=== PATIENT | male | born 1985 | race Caucasian/White ===

== ENCOUNTER 2020-08-14 13:23 | Emergency (ER) | payer BC, SELFPAY ==
[2020-08-14] VITALS (33 sets, daily range): BP systolic 66–130; BP diastolic 50–77; PULSE 43–99; RESP 11–33; TEMP 36.4; O2SAT 77–100
--- NOTE | ~2020-08-14 | XR_ITS ---
EXAMINATION: XR chest 1V portable DATE: 08/14/2020 14:05 INDICATION: Seizure TECHNIQUE: frontal view of the chest was obtained. COMPARISON: Chest radiograph dated 01/08/2019 FINDINGS: The lungs are clear with no focal airspace opacities, pulmonary edema, pleural effusion or pneumothor ax. The cardiomediastinal silhouette is normal. Visualized bones and soft tissues are unremarkable. IMPRESSION: 1. Normal chest radiograph. Reviewed, dictated and finalized at location B. IMPRESSION: 1. Normal chest radiograph.
--- NOTE | ~2020-08-14 | CT_ITS ---
EXAMINATION: CT brain wo con INDICATION: Headache COMPARISON: None TECHNIQUE: Standard unenhanced head CT. The dose-length product (DLP) was 605.33 mGy-cm. The mA was a djusted according to patient size. Iterative reconstruction technique was employed. FINDINGS: There is no intracranial hemorrhage, acute infarction, or abnormal mass lesion. The ventric les are normal. There is no abnormal mass effect or midline shift. The damon-white matter differentiat ion is normal. The basal cisterns are patent. 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 The paranasal sinus es, mastoids and calvarium are normal. IMPRESSION: 1. No acute intracranial abnormality. Reviewed, dictated and finalized at location A.
--- NOTE | 2020-08-14 14:27 | ED.SEIZURE ---
HPI - Seizure General Chief Complaint: Seizure Stated Complaint: SEIZURE Time Seen by Provider: 08/14/20 13:23 History of Present Illness HPI Narrative: Patient is a 35-year-old male who presents ER after potentially having a seizure. Apparently patient walked into the home of one of his friends where there was only 11-year-old girl. Present. He walked and acting confused and sat on the couch and started having shaking activity. Just scared the young woman and she called 911. Patient has been confused since the seizure-like activity for EMS. He has had no additional seizure activity. Patient endorses history of seizures was unsure what medication he takes. He has no other reports of injury and has no visual evidence of trauma. Related Data Home Medications Medication Instructions Recorded Confirmed lamotrigine 300 PO DAILY 08/14/20 Allergies Allergy/AdvReac Type Severity Reaction Status Date / Time No Known Allergies Allergy Verified 08/14/20 16:53 Review of Systems Review of Systems: ROS unobtainable: Yes unobtainable due to mental status PMFSH Past Medical History Medical History (Updated 08/14/20 @ 20:06 by Humberto Guzman MD) Bradycardia Seizures Surgical History Surgical History (Updated 08/14/20 @ 14:32 by Humberto Guzman MD) No history of previous surgery Social History Social History (Updated 08/14/20 @ 14:32 by Humberto Guzman MD) Tobacco type: e-cigarettes/vaping Substance use type: marijuana Gender identity (if verbalized by the patient): Male Sexual Orientation (if Verbalized by the Patient): Straight or Heterosexual Exam Narrative: Exam Narrative: GENERAL: Well-appearing, well-nourished, and in no acute distress. HEAD: Normocephalic, atraumatic. EYES: PERRLA and EOMI. ENT: Mucous membranes moist. CHEST: Clear to auscultation. No respiratory distress. HEART: Regular rate and rhythm. Normal peripheral pulses. ABDOMEN: Soft, nontender, nondistended. EXTREMITIES: Normal range of motion. No edema. SKIN: Warm, dry, no rash. NEURO: Alert and oriented x2. Course Reevaluation(s) Reevaluation #1: Patient now more confused after an episode of emesis. Has not returned to neurologic baseline and is not answering questions now. Will order additional labs/urine and scan the head. No observed seizure activity in the ER. Date: 08/14/20 Time: 15:54 Reevaluation #2: Patient's brother who is called off and let us know the patient did not take his medications today. He has been orally loaded with lamotrigine 300 mg which is his home meds. He has been seizure-free for several hours and is awake alert and oriented x4. He has been given Tylenol for headache. Discharge home. Date: 08/14/20 Time: 20:05 Vital Signs Vital signs: Vital Signs Temperature 97.5 F L 08/14/20 13:42 Pulse Rate 56 L 08/14/20 13:42 Respiratory Rate 18 08/14/20 13:42 Blood Pressure 103/69 08/14/20 13:42 Pulse Oximetry 98 08/14/20 13:42 Temperature 97.5 F L 08/14/20 13:42 Pulse Rate 58 L 08/14/20 16:56 Respiratory Rate 18 08/14/20 13:42 Blood Pressure 103/69 08/14/20 13:42 Pulse Oximetry 98 08/14/20 13:42 MDM - Seizure Lab Data Result diagrams: 08/14/20 14:52 08/14/20 14:52 Labs: Lab Results 08/14/20 08/14/20 08/14/20 Range/Units 14:52 14:52 16:06 WBC 9.6 (4.5-10.0) K/mm3 RBC 5.29 (4.6-6.20) M/mm3 Hgb 15.9 (14.0-18.0) g/dL Hct 47.8 (42.0-52.0) % MCV 90.4 (80-100) fl MCH 30.1 (26-34) pg MCHC 33.3 (32-36) g/dl RDW 12.5 (11.5-14.5) % Plt Count 228 (150-375) k/mm3 MPV 10.5 H (7.4-10.4) fl Immature Gran % (Auto) 0.3 (0-0.5) % Neut % (Auto) 84.1 H (45.5-73.1) % Lymph % (Auto) 11.3 L (18.3-44.2) % [place] % (Auto) 3.7 (2.6-8.5) % Eos % (Auto) 0.2 (0-4.4) % Baso % (Auto) 0.4 (0.2-1.2) % Lymph # (Auto) 1.09 (0.9-3.2) K/mm3 [place] # (Auto) 0.4 (0
--- NOTE | 2020-08-14 14:35 | PC.NURSE ---
RN left a vm for mother at this time to notify that pt is here per pt request my phones
[2020-08-14 14:59] LABS: Basophils Percent Auto 0.4 % (0.2-1.2); Eosinophils Percent Auto 0.2 % (0-4.4); Hematocrit 47.8 % (42.0-52.0); Hemoglobin 15.9 g/dL (14.0-18.0); Immature Granulocyte Absolute 0.03 K/mm3 (0.00-0.031); Immature Granulocyte Percent A 0.3 % (0-0.5); Lymphocytes Absolute Auto 1.09 K/mm3 (0.9-3.2); Lymphocytes Percent Auto 11.3 % (18.3-44.2); Mean Corpuscular HGB Conc 33.3 g/dl (32-36); Mean Corpuscular Hemoglobin 30.1 pg (26-34); Mean Corpuscular Volume 90.4 fl (80-100); Mean Platelet Volume 10.5 fl (7.4-10.4); Monocytes Absolute Auto 0.4 K/mm3 (0.1-0.6); Monocytes Percent Auto 3.7 % (2.6-8.5); Neutrophils Absolute Auto 8.1 K/mm3 (1.3-6.7); Neutrophils Percent Auto 84.1 % (45.5-73.1); Platelet Count Result 228 k/mm3 (150-375); Red Blood Count 5.29 M/mm3 (4.6-6.20); Red Cell Distribution Width 12.5 % (11.5-14.5); White Blood Count 9.6 K/mm3 (4.5-10.0)
[2020-08-14 15:14] LABS: Sodium 137 mmol/L (137-145)
[2020-08-14 15:15] LABS: Anion Gap 10 mmol/L (8-16); Blood Urea Nitrogen 12 mg/dL (9-20); Calcium 8.7 mg/dL (8.4-10.2); Carbon Dioxide 25 mmol/L (22-30); Chloride 102 mmol/L (98-107); Estimated CRCL calculation 111 ml/min; Estimated Glomerular Filt Rate > 60; Glucose 149 mg/dL (75-110)
--- NOTE | 2020-08-14 15:55 | PC.NURSE ---
mother of pt called and said that she was unable to tell us meds or pt neurologist. she would contact the brother and see if he knew .they will return our call shortly.
[2020-08-14] MEDS: SODIUM CHLORIDE 0.9% IV 1,000 ML 999 ML IV CONT (16:10)
[2020-08-14 16:23] LABS: Ethanol < 10 mg/dL (<10)
--- NOTE | 2020-08-14 16:47 | PC.NURSE ---
Brother Leroy Young [phone] per brother report Pt did not have his meds today, pt take lamotrigine 300mg daily between 121230, dr sanabria [phone]. My brother went for a walk with his roommates dog, placed it back in the yard, had a micro seizure, walked a few blocks and tried opening a truck door, instead climbed into bed of truck. and had another seizure and 911 was called. His seizures usually last a few minute, he pales, sweaty, smells like ammonia, goose bumps to left side of body only.
[2020-08-14] MEDS: lamoTRIgine 100 MG TABLET 300 MG PO (17:10)
[2020-08-14] MEDS: ACETAMINOPHEN 325 MG TABLET 650 MG PO (17:54)
[2020-08-14 20:29] LABS: Add Urine Microscopic? YES; Appearance Urine Cloudy (Clear); Bacteria Urine Trace /hpf; Bilirubin Urine Negative (Negative); Blood Urine Negative (Negative); Cellular Casts Urine Present /lpf; Color Urine Yellow (Yellow); Glucose Urine UA 2+ mg/dL (Negative); Ketones Urine Trace mg/dL (Negative); Leukocyte Esterase Ur Negative LEU/UL (Negative); Mucus Urine Few /lpf; Nitrate Urine Negative (Negative); Protein Urine 2+ mg/dL (Negative); RBC Urine 0-2 /hpf (0-2); Specific Grav Ur 1.024 (1.001-1.035); Urobilinogen Urine Negative mg/dL (<2.0); WBC Urine 0-3 /hpf
[2020-08-14 20:41] LABS: Amphetamine Screen Urine Negative (Negative); Barbiturate Screen Urine Negative (Negative); Benzodiazepines Screen Urine Negative (Negative); Cannabinoid Screen Urine Positive (Negative); Cocaine Screen Urine Negative (Negative); Methadone Screen Urine Negative (Negative); Opiate Screen Urine Negative (Negative); Phencyclidine Screen Urine Negative (Negative)
== END 2020-08-14 21:06 | disposition home or self-care (01) ==
PROVIDERS: Emergency Provider Emergency Medicine
DX: G40.909 Epilepsy, unspecified, not intractable, without status epilepticus (principal); F17.290 Nicotine dependence, other tobacco product, uncomplicated
CPT/HCPCS: 36415; 70450; 71045; 80048; 80307; 81001; 85025; 96360; 96361; 99284; A9270; J7030

== ENCOUNTER 2020-09-01 13:21 | Emergency (ER) | payer BC, SELFPAY ==
[2020-09-01] VITALS (19 sets, daily range): BP systolic 117–146; BP diastolic 70–84; PULSE 59–81; RESP 9–22; TEMP 36.6; O2SAT 97–100
--- NOTE | 2020-09-01 13:36 | ECG_ITS ---
Measurements Intervals [place] Rate: 63 P: 53 [place]: 166 QRS: 9 QRSD: 117 T: 46 QT: 377 QTc: 386 Interpretive Statements SINUS RHYTHM INCOMPLETE RIGHT BUNDLE BRANCH BLOCK BORDERLINE ECG Electronically Signed On 09-01-2020 14:08:26 SECURITY SHIFT MANAGER by Surya Andrews D.O.
--- NOTE | 2020-09-01 13:43 | ED.SEIZURE ---
HPI - Seizure General Chief Complaint: Seizure Stated Complaint: SEIZURE Time Seen by Provider: 09/01/20 13:35 Source: patient History of Present Illness HPI Narrative: 35-year-old male presents to emergency department after having a seizure today. Patient states his last seizure was about 2 weeks ago. He is compliant with his seizure medications. He states he was in the park, and then remembers waking up in the hospital. He states he feels foggy. No lightheadedness or dizziness. No chest pain or shortness of breath. No abdominal pain. No nausea or vomiting. Seizure History: Yes Related Data Home Medications Medication Instructions Recorded Confirmed lamotrigine 300 PO DAILY 08/14/20 Allergies Allergy/AdvReac Type Severity Reaction Status Date / Time No Known Allergies Allergy Verified 08/14/20 16:53 Review of Systems Review of Systems: All systems reviewed & are unremarkable except as noted in HPI and below (ROS) Constitutional: Constitutional: Denies chills and Denies fever(s) Comments: Reports fogginess Eyes: Eyes: Reports no additional eye complaints ENT: Reports system reviewed and no additional complaints, except as documented Cardiovascular: Cardiovascular: Denies chest pain Respiratory: Respiratory: Denies cough and Denies dyspnea Gastrointestinal: Gastrointestinal: Denies abdominal pain, Denies diarrhea, Denies nausea and Denies vomiting Genitourinary: Genitourinary: Reports no additional male genitourinary complaints Musculoskeletal: Musculoskeletal: Reports no additional musculoskeletal complaints Integumentary/Breasts: Skin/Breast: Reports system reviewed and no additional complaints, except as docu Neurologic: Reports system reviewed and no additional complaints, except as documented Psychiatric: Psychiatric: Reports no additional psychiatric complaints Endocrine: Endocrine: Reports no additional endocrine complaints Hematologic/Lymphatic: Hematologic/Lymphatic: Reports no additional hematologic/lymphatic complaints Allergic/Immunologic: Allergic/Immunologic: Reports no additional allergic/immunologic complaints PMFSH Past Medical History Medical History Bradycardia Seizures Surgical History Surgical History No history of previous surgery Social History Social History Tobacco type: e-cigarettes/vaping Substance use type: marijuana Gender identity (if verbalized by the patient): Male Exam Const: General: no acute distress and alert Orientation/consciousness: patient oriented x3 HENMT: Other: Right tongue abrasion Eyes: Pupils: Equal, round and reactive pupils present Neck: Neck: normal visual inspection Chest: Chest palpation & inspection: normal inspection of the chest Resp: Effort & Inspection: normal respiratory effort Auscultation: clear to auscultation bilaterally Cardio: Rate: regular rate Rhythm: regular rhythm GI: Inspection: non-distended GI Palp: Yes Soft to palpation and Yes Tenderness to palpation present (GI) Skin: General skin exam: normal color Rashes: no rashes Neuro: General: patient oriented x3 and moves all extremities Extrem: General: normal to inspection Psych: Mental Status: mental status grossly normal Thought content: Yes Normal thought content present Course Reevaluation(s) Reevaluation #1: 1530 -reevaluated patient, no new complaints. Patient has not had a seizure since he has been in the emergency department. Counseled patient to follow-up with his neurologist as soon as possible for further evaluation, as he may need a change in his seizure medication. Return to emergency department if he continues to have seizures or other concerns. Vital Signs Vital signs: Vital Signs Pulse Rate 62 09/01/20 13:24 Respiratory Rate 12 09/01/20 13:24 Pulse
[2020-09-01 13:57] LABS: Basophils Percent Auto 0.5 % (0.2-1.2); Eosinophils Percent Auto 0.4 % (0-4.4); Hematocrit 47.8 % (42.0-52.0); Immature Granulocyte Absolute 0.04 K/mm3 (0.00-0.031); Immature Granulocyte Percent A 0.5 % (0-0.5); Lymphocytes Absolute Auto 1.22 K/mm3 (0.9-3.2); Lymphocytes Percent Auto 15.1 % (18.3-44.2); Mean Corpuscular HGB Conc 33.5 g/dl (32-36); Mean Corpuscular Hemoglobin 29.9 pg (26-34); Mean Corpuscular Volume 89.2 fl (80-100); Mean Platelet Volume 10.5 fl (7.4-10.4); Monocytes Absolute Auto 0.4 K/mm3 (0.1-0.6); Monocytes Percent Auto 5.2 % (2.6-8.5); Neutrophils Absolute Auto 6.4 K/mm3 (1.3-6.7); Neutrophils Percent Auto 78.3 % (45.5-73.1); Platelet Count Result 234 k/mm3 (150-375); Red Blood Count 5.36 M/mm3 (4.6-6.20); Red Cell Distribution Width 12.5 % (11.5-14.5); White Blood Count 8.1 K/mm3 (4.5-10.0)
[2020-09-01 14:07] LABS: Alanine Aminotransferase 24 U/L (4-50); Albumin Level 4.9 g/dL (3.5-5.1); Alkaline Phosphatase 72 U/L (38-126); Anion Gap 8 mmol/L (8-16); Aspartate Amino Transferase 33 U/L (17-59); Bilirubin,Total 0.4 mg/dL (0.2-1.3); Blood Urea Nitrogen 14 mg/dL (9-20); Calcium 9.2 mg/dL (8.4-10.2); Carbon Dioxide 29 mmol/L (22-30); Chloride 102 mmol/L (98-107); Estimated CRCL calculation 101 ml/min; Estimated Glomerular Filt Rate > 60; Glucose 108 mg/dL (75-110); Potassium 4.3 mmol/L (3.4-5.0); Sodium 139 mmol/L (137-145)
--- NOTE | 2020-09-01 15:15 | PC.NURSE ---
spoke with ZACH Minor about pt results all being back, ZACH states that he is still wanting to keep an eye on the pt and not let him go real quick. pt updates on plan of care.
[2020-09-04 13:29] LABS: Lamotrigine Lamictal 8.7 mcg/mL (4.0-18.0)
== END 2020-09-01 15:53 | disposition home or self-care (01) ==
PROVIDERS: Emergency Provider Emergency Medicine
DX: G40.909 Epilepsy, unspecified, not intractable, without status epilepticus (principal); I45.10 Unspecified right bundle-branch block
CPT/HCPCS: 36415; 80053; 80175; 85025; 93005; 99283

== ENCOUNTER 2021-01-31 15:10 | Emergency (ER) | payer BC, SELFPAY ==
[2021-01-31 15:13] VITALS: BP 143/87; PULSE 66; RESP 18; TEMP 36.9; O2SAT 96
[2021-01-31 15:22] VITALS: PULSE 70
--- NOTE | 2021-01-31 15:22 | ECG_ITS ---
Measurements Intervals [place] Rate: 61 P: 55 [place]: 183 QRS: 14 QRSD: 109 T: 48 QT: 375 QTc: 379 Interpretive Statements SINUS RHYTHM INCOMPLETE RIGHT BUNDLE BRANCH BLOCK BASELINE ARTIFACT- I, II, III, AVR, AVL, AVF BORDERLINE ECG Electronically Signed On 01-31-2021 17:19:35 CDT by Surya Andrews D.O.
[2021-01-31] MEDS: SODIUM CHLORIDE 0.9% IV 1,000 ML 999 ML IV CONT (15:26)
--- NOTE | 2021-01-31 15:33 | ED.GENADULT ---
HPI - General Adult General Chief complaint: Seizure Stated complaint: SZ Source: patient and old records reviewed Mode of arrival: ambulatory Limitations: no limitations History of Present Illness HPI narrative: Patient a 35-year-old male who presents for EMS status post seizure patient with history of seizure disorder is currently taking Lamictal 300 mg daily patient is followed by neurology Dr. Russell patient notes in the last month this will be his fifth seizure patient on arrival is no longer postictal resting comfortably in the room denying any pain alert and oriented x3 Related Data Home Medications Medication Instructions Recorded Confirmed lamotrigine 300 PO DAILY 08/14/20 Allergies Allergy/AdvReac Type Severity Reaction Status Date / Time No Known Allergies Allergy Verified 08/14/20 16:53 Review of Systems Review of Systems: All systems reviewed & are unremarkable except as noted in HPI and below PMFSH Past Medical History Medical History Bradycardia Seizures Surgical History Surgical History No history of previous surgery Social History Social History Tobacco type: e-cigarettes/vaping Substance use type: marijuana Gender identity (if verbalized by the patient): Male Exam Narrative: Exam Narrative: GENERAL: Well-appearing, well-nourished, and in no acute distress. HEAD: Normocephalic, atraumatic. EYES: PERRLA and EOMI. CHEST: Clear to auscultation. No respiratory distress. No wheezes rales or rhonchi HEART: Regular rate and rhythm. No murmur heard. Normal peripheral pulses. ABDOMEN: Soft, nontender, nondistended EXTREMITIES: Normal range of motion. No edema. SKIN: Warm, dry, no rash. NEURO: No focal deficits. Alert and oriented x3. Cranial nerves II through XII grossly intact. Normal speech PSYCH: Normal mood and affect. Course Course Emergency Course: Patient evaluated the emergency department has remained in normal mentation no high risk changes in the blood work will be discharged home with recommendations to increase his Lamictal and follow with his neurologist patient agrees with this plan also given reasons to return Consultations Consultation #1: Les case with Dr. Russell who will follow the patient in clinic would like the patient's Lamictal to be increased to 200 twice a day. I will follow the patient in clinic as noted Date: 01/31/21 Time: 17:50 Vital Signs Vital signs: Vital Signs Temperature 98.5 F 01/31/21 15:13 Pulse Rate 66 01/31/21 15:13 Respiratory Rate 18 01/31/21 15:13 Blood Pressure 143/87 H 01/31/21 15:13 Pulse Oximetry 96 01/31/21 15:13 Temperature 98.5 F 01/31/21 15:13 Pulse Rate 55 L 01/31/21 17:07 Respiratory Rate 21 H 01/31/21 17:07 Blood Pressure 121/69 01/31/21 17:07 Pulse Oximetry 99 01/31/21 17:07 Medical Decision Making MDM Narrative Medical decision making narrative: Patient with seizure will be discharged home with follow-up with his neurologist with medication change patient agrees with this was hydrated and given Ativan in the emergency department has remained hemodynamically stable Vital Signs Vital Signs: Vital Signs Temperature 98.5 F 01/31/21 15:13 Pulse Rate 66 01/31/21 15:13 Respiratory Rate 18 01/31/21 15:13 Blood Pressure 143/87 H 01/31/21 15:13 Pulse Oximetry 96 01/31/21 15:13 Temperature 98.5 F 01/31/21 15:13 Pulse Rate 55 L 01/31/21 17:07 Respiratory Rate 21 H 01/31/21 17:07 Blood Pressure 121/69 01/31/21 17:07 Pulse Oximetry 99 01/31/21 17:07 Lab Data Result diagrams: 01/31/21 15:41 01/31/21 15:41 Labs: Lab Results 01/31/21 01/31/21 01/31/21 Range/Units 15:41 15:41 15:41 WBC 13.6 H (4.5-10.0) K/mm3 RBC 5.13 (4.6-6.20) M/mm3 Hgb 15.5
[2021-01-31] MEDS: LORazepam INJ (*CRX) 2 MG/ML VIAL 1 MG IV PUSH (15:48)
[2021-01-31 15:50] LABS: Basophils Absolute Auto 0.1 K/mm3 (0.0-0.1); Basophils Percent Auto 0.4 % (0.2-1.2); Eosinophils Percent Auto 0.2 % (0-4.4); Hematocrit 46.3 % (42.0-52.0); Hemoglobin 15.5 g/dL (14.0-18.0); Immature Granulocyte Absolute 0.06 K/mm3 (0.00-0.031); Immature Granulocyte Percent A 0.4 % (0-0.5); Lymphocytes Absolute Auto 1.11 K/mm3 (0.9-3.2); Lymphocytes Percent Auto 8.2 % (18.3-44.2); Mean Corpuscular HGB Conc 33.5 g/dl (32-36); Mean Corpuscular Hemoglobin 30.2 pg (26-34); Mean Corpuscular Volume 90.3 fl (80-100); Mean Platelet Volume 10.1 fl (7.4-10.4); Monocytes Absolute Auto 0.5 K/mm3 (0.1-0.6); Monocytes Percent Auto 3.6 % (2.6-8.5); Neutrophils Absolute Auto 11.9 K/mm3 (1.3-6.7); Neutrophils Percent Auto 87.2 % (45.5-73.1); Platelet Count Result 236 k/mm3 (150-375); Red Blood Count 5.13 M/mm3 (4.6-6.20); Red Cell Distribution Width 12.6 % (11.5-14.5); White Blood Count 13.6 K/mm3 (4.5-10.0)
[2021-01-31 16:02] LABS: Alanine Aminotransferase 25 U/L (4-50); Albumin Level 4.7 g/dL (3.5-5.1); Alkaline Phosphatase 76 U/L (38-126); Anion Gap 8 mmol/L (8-16); Aspartate Amino Transferase 33 U/L (17-59); Bilirubin,Total 0.3 mg/dL (0.2-1.3); Blood Urea Nitrogen 16 mg/dL (9-20); Calcium 8.7 mg/dL (8.4-10.2); Carbon Dioxide 26 mmol/L (22-30); Chloride 103 mmol/L (98-107); Estimated CRCL calculation 101 ml/min; Estimated Glomerular Filt Rate > 60; Glucose 126 mg/dL (75-110); Potassium 4.5 mmol/L (3.4-5.0); Sodium 137 mmol/L (137-145)
[2021-01-31 16:13] VITALS: BP 145/83; PULSE 63; RESP 20; O2SAT 100
--- NOTE | 2021-01-31 16:14 | PC.NURSE ---
patient unable to urinate at this time, declines straight cath but will attempt again later.
[2021-01-31 17:07] VITALS: BP 121/69; PULSE 55; RESP 21; O2SAT 99
[2021-01-31 17:10] LABS: Add Urine Microscopic? YES; Appearance Urine Clear (Clear); Bilirubin Urine Negative (Negative); Blood Urine Negative (Negative); Color Urine Yellow (Yellow); Glucose Urine UA 1+ mg/dL (Negative); Ketones Urine Negative (Negative); Leukocyte Esterase Ur Negative LEU/UL (Negative); Mucus Urine Rare /lpf; Nitrate Urine Negative (Negative); Protein Urine 1+ mg/dL (Negative); RBC Urine 0-2 /hpf (0-2); Specific Grav Ur 1.024 (1.001-1.035); Squamous Epithelial Cell Urine Rare /hpf (Few); Urobilinogen Urine Negative mg/dL (<2.0); WBC Urine 0-3 /hpf
[2021-01-31 17:57] LABS: Barbiturate Screen Urine Negative (Negative); Benzodiazepines Screen Urine Negative (Negative)
[2021-01-31 18:03] VITALS: BP 135/61; PULSE 67; RESP 25; O2SAT 100
[2021-01-31 18:05] LABS: Cannabinoid Screen Urine Positive (Negative); Cocaine Screen Urine Negative (Negative); Methadone Screen Urine Negative (Negative); Opiate Screen Urine Negative (Negative); Phencyclidine Screen Urine Negative (Negative)
[2021-01-31 18:17] LABS: Amphetamine Screen Urine Negative (Negative)
[2021-02-04 17:20] LABS: Lamotrigine Lamictal 7.6 mcg/mL (4.0-18.0)
== END 2021-01-31 18:05 | disposition home or self-care (01) ==
PROVIDERS: Emergency Medicine Emergency Medical Services; Emergency Provider Family Medicine; PCP Family Medicine
DX: G40.909 Epilepsy, unspecified, not intractable, without status epilepticus (principal); F17.290 Nicotine dependence, other tobacco product, uncomplicated; I45.10 Unspecified right bundle-branch block
CPT/HCPCS: 36415; 80053; 80175; 80307; 81001; 85025; 93005; 96361; 96374; 99284; J2060; J7030

== ENCOUNTER 2022-04-05 15:23 | Emergency (ER) | payer BC, SELFPAY ==
[2022-04-05] VITALS (8 sets, daily range): BP systolic 118–132; BP diastolic 68–81; PULSE 63–68; RESP 13–20; TEMP 36.3–36.4; O2SAT 95–100
--- NOTE | ~2022-04-05 | XR_ITS ---
EXAMINATION: XR chest 2V Exam Date/Time: 04/05/2022 16:29 CDT HISTORY: SEIZURE Comparison: 08/14/2020. RESULT: Lines, tubes, and devices: None. Lungs and pleura: Clear. Cardiomediastinal silhouette: Stable cardiomediastinal silhouette. Other: No acute osseous or upper abdominal finding. IMPRESSION: No acute cardiopulmonary process. Reviewed, dictated and finalized at location K.
--- NOTE | ~2022-04-05 | CT_ITS ---
EXAMINATION: CT brain wo con DATE: 04/05/2022 17:34 INDICATION: seizure . TECHNIQUE: Computed tomography (CT) of the head was performed without intravenous contrast. The mA wa s adjusted according to patient size. Iterative reconstruction technique was employed. The dose-lengt h product was 605.33 mGy-cm. COMPARISON: 08/14/2020. FINDINGS: No acute intracranial hemorrhage or extra-axial fluid collection. No hydrocephalus, mass, or herniation. No acute ischemic infarct. Unremarkable dural venous sinus attenuation. No acute osseous abnormality. The aerated spaces are clear. Old left basal ganglia lacunar infarct. Optic nerve drusen. IMPRESSION: No acute intracranial process. Reviewed, dictated and finalized at location K.
--- NOTE | 2022-04-05 16:20 | ECG_ITS ---
Measurements Intervals [place] Rate: 52 P: 50 [place]: 189 QRS: 20 QRSD: 121 T: 46 QT: 399 QTc: 374 Interpretive Statements SINUS BRADYCARDIA INCOMPLETE RIGHT BUNDLE BRANCH BLOCK ABNORMAL RHYTHM ECG COMPARED TO ECG 01/31/2021 15:18:17 NO SIGNIFICANT CHANGES Electronically Signed On 04-06-2022 7:24:03 CDT by Kirk Cortes M.D.
[2022-04-05 16:35] LABS: Basophils Absolute Auto 0.1 K/mm3 (0.0-0.1); Basophils Percent Auto 0.5 % (0.2-1.2); Eosinophils Percent Auto 0.3 % (0-4.4); Hematocrit 45.4 % (42.0-52.0); Hemoglobin 15.9 g/dL (14.0-18.0); Immature Granulocyte Absolute 0.04 K/mm3 (0.00-0.031); Immature Granulocyte Percent A 0.4 % (0-0.5); Lymphocytes Absolute Auto 1.63 K/mm3 (0.9-3.2); Lymphocytes Percent Auto 17.6 % (18.3-44.2); Mean Corpuscular Hemoglobin 30.3 pg (26-34); Mean Corpuscular Volume 86.6 fl (80-100); Mean Platelet Volume 10.1 fl (7.4-10.4); Monocytes Absolute Auto 0.5 K/mm3 (0.1-0.6); Monocytes Percent Auto 5.5 % (2.6-8.5); Neutrophils Percent Auto 75.7 % (45.5-73.1); Platelet Count Result 269 k/mm3 (150-375); Red Blood Count 5.24 M/mm3 (4.6-6.20); Red Cell Distribution Width 12.4 % (11.5-14.5); White Blood Count 9.3 K/mm3 (4.5-10.0)
--- NOTE | 2022-04-05 16:43 | ED.SEIZURE ---
HPI - Seizure General Chief Complaint: Seizure Stated Complaint: SEIZURES Time Seen by Provider: 04/05/22 16:33 History of Present Illness HPI Narrative: 36-year-old male presents the emergency room for evaluation of multiple seizures prior to arrival. Patient has a seizure history and is currently on Vimpat and Lamictal. According to family, patient experienced multiple partial seizures. Patient is currently alert and oriented x4, but states that he is not had any dosing changes to his seizure medications. Patient states that he was in contact with his neurologist prior to arrival and was told to come to the emergency room for evaluation. Seizure History: Yes Related Data Allergies Allergy/AdvReac Type Severity Reaction Status Date / Time No Known Allergies Allergy Verified 08/14/20 16:53 Review of Systems Review of Systems: CONSTITUTIONAL: Denies fever, chills, or sweats. EYES: Denies visual changes, redness, or discharge. ENT: Denies rhinorrhea, congestion, sore throat, or otalgia. CARDIOVASCULAR: Denies chest pain, palpitations, or edema. RESPIRATORY: Denies cough or dyspnea. GASTROINTESTINAL: Denies abdominal pain, nausea, vomiting, or diarrhea. GENITOURINARY: Denies dysuria or hematuria. SKIN: Denies rash or itching. MUSCULOSKELETAL: Denies back pain, joint pain, or myalgia. NEUROLOGIC: Denies headache, numbness, dizziness, or weakness. PSYCHIATRIC: Denies anxiety or depression. [facility] Past Medical History Medical History Bradycardia Seizures Surgical History Surgical History No history of previous surgery Social History Social History Tobacco type: e-cigarettes/vaping Substance use type: marijuana Gender identity (if verbalized by the patient): Male Sexual Orientation (if Verbalized by the Patient): Straight or Heterosexual Exam Narrative: GENERAL: Well-appearing, well-nourished, and in no acute distress. HEAD: Normocephalic, atraumatic. EYES: PERRLA and EOMI. CHEST: Clear to auscultation. No respiratory distress. No wheezes rales or rhonchi HEART: Regular rate and rhythm. No murmur heard. Normal peripheral pulses. ABDOMEN: Soft, nontender, nondistended, normal active bowel sounds. EXTREMITIES: Normal range of motion. No edema. SKIN: Warm, dry, no rash. NEURO: No focal deficits. Alert and oriented x3. PSYCH: Normal mood and affect. Course Course Emergency Course: 1839: Discussed case with Dr. Head, neurologist with [facility]. He recommends having the patient take Klonopin twice a day for the next 3 days and follow-up with neurology next week. Vital Signs Vital signs: Vital Signs Temperature 36.4 C 04/05/22 15:26 Pulse Rate 67 04/05/22 15:26 Respiratory Rate 20 04/05/22 15:26 Blood Pressure 131/78 04/05/22 15:26 Pulse Oximetry 100 04/05/22 15:26 Oxygen Delivery Room Air 04/05/22 15:26 Temperature 36.4 C 04/05/22 15:26 Pulse Rate 64 04/05/22 15:45 Respiratory Rate 13 04/05/22 15:45 Blood Pressure 131/78 04/05/22 15:26 Pulse Oximetry 95 04/05/22 15:45 Oxygen Delivery Room Air 04/05/22 15:26 MDM - Seizure MDM Narrative Medical decision making narrative: 36-year-old male presents to the emergency room for evaluations of multiple seizures prior to arrival. Secondary etiologies were considered, but are less likely which include drug or toxin etiologies, metabolic disturbances, DIRECTOR [employer]CH[employer]ECTURE infections, ICH/CVA. Presentation is not consistent with an impact seizure related to any kind of head trauma. CT scan showed no acute intracranial abnormalities. CT MP and CBC were unremarkable. Patient had multiple seizures while here in the emergency room, and was given lorazepam. Case was discussed with his neurologist, Dr. Head, he recommends for 3-day course of Klonopin and follow-up in the next 6
[2022-04-05] MEDS: LORazepam INJ (*CRX) 2 MG/ML VIAL 1 MG IV PUSH (16:50)
--- NOTE | 2022-04-05 17:00 | PC.NURSE ---
received VO for 1mg IV ativan for patient actively having a seizure
[2022-04-05 17:20] LABS: Alanine Aminotransferase 17 U/L (6-50); Alkaline Phosphatase 77 U/L (38-126); Anion Gap 8 mmol/L (8-16); Aspartate Amino Transferase 26 U/L (17-59); Bilirubin,Total 0.6 mg/dL (0.2-1.3); Blood Urea Nitrogen 12 mg/dL (9-20); Calcium 8.8 mg/dL (8.4-10.2); Carbon Dioxide 27 mmol/L (22-30); Chloride 100 mmol/L (98-107); Estimated CRCL calculation 97 ml/min; Estimated Glomerular Filt Rate > 60; Glucose 125 mg/dL (65-110); Potassium 4.1 mmol/L (3.4-5.0); Sodium 135 mmol/L (137-145)
[2022-04-05 19:01] LABS: Appearance Urine Clear (Clear); Bilirubin Urine Negative (Negative); Blood Urine Negative (Negative); Color Urine Yellow (Yellow); Glucose Urine UA Negative (Negative); Ketones Urine Negative (Negative); Leukocyte Esterase Ur Negative LEU/UL (Negative); Nitrate Urine Negative (Negative); Protein Urine Trace mg/dL (Negative); Specific Grav Ur >= 1.030 (1.001-1.035); Urobilinogen Urine 0.2 mg/dL (<2.0)
[2022-04-05 19:24] LABS: Bacteria Urine Trace /hpf; Mucus Urine Moderate /lpf; RBC Urine 0-2 /hpf (0-2); Squamous Epithelial Cell Urine Rare /hpf (Few); WBC Urine 0-3 /hpf
[2022-04-05 19:25] LABS: Add Urine Microscopic? YES
== END 2022-04-05 20:20 | disposition home or self-care (01) ==
PROVIDERS: Emergency Medicine; Emergency Provider Nurse Practitioner Family; PCP Family Medicine
DX: G40.909 Epilepsy, unspecified, not intractable, without status epilepticus (principal); F17.210 Nicotine dependence, cigarettes, uncomplicated; R00.1 Bradycardia, unspecified; I45.10 Unspecified right bundle-branch block
CPT/HCPCS: 36415; 70450; 71046; 80053; 81001; 85025; 93005; 96374; 99284; J2060

== ENCOUNTER 2022-07-28 20:11 | Emergency (ER) | payer BC, SELFPAY ==
--- NOTE | ~2022-07-28 | XR_ITS ---
EXAMINATION: XR chest 1V portable DATE: 07/28/2022 20:40 INDICATION: Seizure TECHNIQUE: frontal view of the chest was obtained. COMPARISON: Chest radiograph dated 04/05/2022 FINDINGS: The lungs remain clear with no focal airspace opacities, pulmonary edema, pleural effusion or pneumot horax. The cardiomediastinal silhouette is normal. Visualized bones and soft tissues are unremarkable . IMPRESSION: 1. Normal chest radiograph. Reviewed, dictated and finalized at location A. IMPRESSION: 1. Normal chest radiograph.
--- NOTE | ~2022-07-28 | CT_ITS ---
EXAMINATION: CT brain wo con DATE: 07/28/2022 20:49 INDICATION: Seizures TECHNIQUE: Computed tomography (CT) of the head was performed without intravenous contrast. Sagittal and coronal reconstructions were performed. The mA was adjusted according to patient size. Iterative reconstruction technique was employed. The dose-length product was 605.33 mGy-cm. COMPARISON: head CT dated 04/05/2022 FINDINGS: No acute intracranial hemorrhage, acute infarction or abnormal extra axial fluid collection. Ventricl es are normal and symmetric. No mass/mass effect. Small calcified drusen at the bilateral optic discs . The paranasal sinuses and mastoid air cells are normal. IMPRESSION: 1. Normal brain. Reviewed, dictated and finalized at location A. IMPRESSION: 1. Normal brain.
[2022-07-28 20:12] VITALS: BP 129/84; PULSE 61; RESP 14; TEMP 36.6; O2SAT 100
--- NOTE | 2022-07-28 20:26 | ECG_ITS ---
Measurements Intervals [place] Rate: 65 P: 61 [place]: 184 QRS: 35 QRSD: 105 T: 59 QT: 379 QTc: 395 Interpretive Statements SINUS RHYTHM INCOMPLETE RIGHT BUNDLE BRANCH BLOCK BASELINE ARTIFACT- I, II, III, AVR, AVL, AVF, V1-V2 BORDERLINE ECG COMPARED TO ECG 04/05/2022 16:59:53 HEART RATE HAS INCREASED Electronically Signed On 07-29-2022 7:06:23 CDT by Surya Andrews D.O.
--- NOTE | 2022-07-28 20:30 | ED.SEIZURE ---
HPI - Seizure General Chief Complaint: Seizure Stated Complaint: SEIZURE Time Seen by Provider: 07/28/22 20:15 Source: RN notes reviewed History of Present Illness HPI Narrative: Patient presents emergency department from home for seizure. Patient states he has a history of absence seizure's and is on Vimpat and Lamictal which she states he has been taking. Patient states he had a seizure this evening and EMS was called. He states that this time his only complaint is a headache which he states he has had throughout the day today. States he did take ibuprofen earlier today for the headache. Patient denies having fevers or chills chest pain shortness of breath abdominal pain nausea vomiting or any other symptoms Seizure History: Yes Related Data Allergies Allergy/AdvReac Type Severity Reaction Status Date / Time No Known Allergies Allergy Verified 08/14/20 16:53 Review of Systems Review of Systems: Gen.: Denies fevers or chills Eyes: Denies eye pain or visual change ENT: Denies congestion Respiratory: Denies shortness of breath or cough CV: Denies chest pain or palpitations GI: Denies abdominal pain nausea, emesis or diarrhea Musculoskeletal: Denies back pain or muscle pain Neuro: See HPI Skin: Denies rash Except as documented, all other systems reviewed and negative [facility] Past Medical History Medical History Bradycardia Seizures Surgical History Surgical History No history of previous surgery Social History Social History Tobacco type: e-cigarettes/vaping Substance use type: marijuana Gender identity (if verbalized by the patient): Male Sexual Orientation (if Verbalized by the Patient): Straight or Heterosexual Exam Narrative: APPEARANCE: No acute distress, nontoxic, resting in bed EYES: EOMI, PERRL HEENT: Normocephalic, atraumatic, OMM RESPIRATORY: No respiratory distress Clear to auscultation bilaterally with no rhonchi wheezing or rales. CARDIOVASCULAR: Regular rate and rhythm without murmurs rubs or gallops. ABDOMINAL: Soft, nontender, nondistended, no rebound or guarding MUSCULOSKELETAl: Moves all extremities. No clubbing, cyanosis or edema. NEURO: Awake and alert x 4 Following commands, speech normal, no focal deficits SKIN:: Warm, dry. No rashes lesions or abrasions PSYCHIATRIC: Normal affect/mood, Course Course Emergency Course: Discussed with patient's neurologist Dr. Suzanne Minor in [facility] at this time she recommends Depakote 500 mg twice daily be added on to the patient's regimen and she will follow with the patient as an outpatient Discussed with patient results of workup and diagnosis. Discussed need for follow-up with primary care, proper use of medication, and reasons to return to the emergency department. Patient understands and agrees to current treatment plan Vital Signs Vital signs: Vital Signs Temperature 97.9 F 07/28/22 20:12 Pulse Rate 61 07/28/22 20:12 Respiratory Rate 14 07/28/22 20:12 Blood Pressure 129/84 07/28/22 20:12 Pulse Oximetry 100 07/28/22 20:12 Temperature 97.9 F 07/28/22 20:12 Pulse Rate 61 07/28/22 20:12 Respiratory Rate 14 07/28/22 20:12 Blood Pressure 129/84 07/28/22 20:12 Pulse Oximetry 100 07/28/22 20:12 MDM - Seizure Lab Data Result diagrams: 07/28/22 20:34 07/28/22 20:34 Labs: Lab Results 07/28/22 07/28/22 07/28/22 Range/Units 20:34 20:34 23:18 WBC 7.6 (4.5-10.0) K/mm3 RBC 5.21 (4.6-6.20) M/mm3 Hgb 15.8 (14.0-18.0) g/dL Hct 46.3 (42.0-52.0) % MCV 88.9 (80-100) fl MCH 30.3 (26-34) pg MCHC 34.1 (32-36) g/dl RDW 12.2 (11.5-14.5) % Plt Count 243 (150-375) k/mm3 MPV 9.9 (7.4-10.4) fl Immature Gran % (Auto) 0.3 (0-0.5) % Neut % (Auto) 6
[2022-07-28] MEDS: SODIUM CHLORIDE 0.9% IV 1,000 ML 999 ML IV CONT (20:37)
[2022-07-28 20:39] LABS: Basophils Absolute Auto 0.1 K/mm3 (0.0-0.1); Basophils Percent Auto 0.7 % (0.2-1.2); Eosinophils Absolute Auto 0.1 K/mm3 (0-0.3); Eosinophils Percent Auto 0.8 % (0-4.4); Hematocrit 46.3 % (42.0-52.0); Hemoglobin 15.8 g/dL (14.0-18.0); Immature Granulocyte Absolute 0.02 K/mm3 (0.00-0.031); Immature Granulocyte Percent A 0.3 % (0-0.5); Lymphocytes Percent Auto 24.9 % (18.3-44.2); Mean Corpuscular HGB Conc 34.1 g/dl (32-36); Mean Corpuscular Hemoglobin 30.3 pg (26-34); Mean Corpuscular Volume 88.9 fl (80-100); Mean Platelet Volume 9.9 fl (7.4-10.4); Monocytes Absolute Auto 0.5 K/mm3 (0.1-0.6); Monocytes Percent Auto 6.8 % (2.6-8.5); Neutrophils Absolute Auto 5.1 K/mm3 (1.3-6.7); Neutrophils Percent Auto 66.5 % (45.5-73.1); Platelet Count Result 243 k/mm3 (150-375); Red Blood Count 5.21 M/mm3 (4.6-6.20); Red Cell Distribution Width 12.2 % (11.5-14.5); White Blood Count 7.6 K/mm3 (4.5-10.0)
[2022-07-28 20:53] LABS: Alanine Aminotransferase 18 U/L (6-50); Alkaline Phosphatase 62 U/L (38-126); Anion Gap 13 mmol/L (8-16); Aspartate Amino Transferase 28 U/L (17-59); Bilirubin,Total 0.7 mg/dL (0.2-1.3); Blood Urea Nitrogen 11 mg/dL (9-20); Calcium 9.2 mg/dL (8.4-10.2); Carbon Dioxide 26 mmol/L (22-30); Chloride 98 mmol/L (98-107); Estimated CRCL calculation 88 ml/min; Estimated Glomerular Filt Rate > 60; Glucose 114 mg/dL (65-110); Potassium 3.8 mmol/L (3.4-5.0); Sodium 137 mmol/L (137-145)
[2022-07-28 23:24] LABS: Appearance Urine Clear (Clear); Bilirubin Urine Negative (Negative); Blood Urine Negative (Negative); Color Urine Yellow (Yellow); Glucose Urine UA Negative (Negative); Ketones Urine 1+ mg/dL (Negative); Leukocyte Esterase Ur Negative LEU/UL (Negative); Nitrate Urine Negative (Negative); Protein Urine 1+ mg/dL (Negative); Specific Grav Ur 1.015 (1.001-1.035); Urobilinogen Urine 0.2 mg/dL (<2.0); pH Urine 8.5 (5.0-9.0)
[2022-07-28 23:31] LABS: Bacteria Urine Trace /hpf; Mucus Urine Few /lpf; Squamous Epithelial Cell Urine Rare /hpf (Few); WBC Urine 0-3 /hpf
[2022-07-28 23:45] LABS: Add Urine Microscopic? YES
[2022-07-28] MEDS: DIVALPROEX SODIUM DR 250 MG TABEC 500 MG PO (23:49)
[2022-07-29 00:25] VITALS: BP 121/77; PULSE 57; RESP 20; O2SAT 98
== END 2022-07-29 00:26 | disposition home or self-care (01) ==
PROVIDERS: Emergency Provider Emergency Medicine; PCP Family Medicine
DX: G40.A09 Absence epileptic syndrome, not intractable, without status epilepticus (principal); F17.290 Nicotine dependence, other tobacco product, uncomplicated; I45.10 Unspecified right bundle-branch block
CPT/HCPCS: 36415; 70450; 71045; 80053; 81001; 85025; 93005; 96365; 99284; A9270; J0131; J7030

== ENCOUNTER 2023-02-13 16:54 | Emergency (ER) | payer BC, SELFPAY ==
[2023-02-13] VITALS (36 sets, daily range): BP systolic 94–116; BP diastolic 58–81; PULSE 41–59; RESP 12–23; TEMP 36.6; O2SAT 91–100
--- NOTE | 2023-02-13 19:12 | PC.NURSE ---
Patient report to NIRANJAN Villanueva. All questions answered and care of patient transferred.
[2023-02-13] MEDS: SODIUM CHLORIDE 0.9% IV 1,000 ML 999 ML IV CONT (19:47)
--- NOTE | 2023-02-13 20:35 | ED.GENADULT ---
HPI - General Adult General Chief complaint: Seizure Stated complaint: gen. weak Time Seen by Provider: 02/13/23 19:14 History of Present Illness HPI narrative: This is a 37-year-old male with a known history of seizure disorders. The patient has atypical seizures that present with multiple complaints including fugue states as well as lower extremity weakness. Earlier today the patient started to feel a little bit lightheaded and then felt weak in his legs. The patient says he has Had seizures that present this way many times in the past. He came to the hospital because his brother was concerned and called an ambulance. At this time the patient is resting comfortably and has no complaints. He did take a dose of Vimpat earlier than scheduled today he was not sure if that had caused his symptoms. He has been compliant with his medication denies use of drugs or alcohol. Related Data Allergies Allergy/AdvReac Type Severity Reaction Status Date / Time No Known Allergies Allergy Verified 02/13/23 17:03 PMFSH Past Medical History Medical History Bradycardia Seizures Surgical History Surgical History No history of previous surgery Social History Social History Tobacco type: e-cigarettes/vaping Substance use type: marijuana Gender identity (if verbalized by the patient): Male Sexual Orientation (if Verbalized by the Patient): Straight or Heterosexual Exam Narrative: APPEARANCE: No apparent distress. Patient is polite and pleasant during the interview Head: atraumatic. EYES: EOMI, NOSE: Atraumatic NECK: Trachea midline RESPIRATORY: No increased rate of breathing CARDIOVASCULAR: RRR, ABDOMINAL: Non-distended MUSCULOSKELETAl: No obvious deformities NEURO: Alert. Cranial nerves 2-12 grossly intact. Sensation light touch, motor function cerebellar function intact for 4 extremities. Gait exam was normal. SKIN:: Warm, dry. Normal color PSYCHIATRIC: Normal affect Course Vital Signs Vital signs: Vital Signs Temperature 97.8 F 02/13/23 16:51 Pulse Rate 56 L 02/13/23 16:51 Respiratory Rate 16 02/13/23 16:51 Pulse Oximetry 96 02/13/23 16:51 Oxygen Delivery Room Air 02/13/23 16:51 Temperature 97.8 F 02/13/23 16:51 Pulse Rate 48 L 02/13/23 22:30 Respiratory Rate 20 02/13/23 22:30 Blood Pressure 112/70 02/13/23 22:30 Pulse Oximetry 100 02/13/23 21:40 Oxygen Delivery Room Air 02/13/23 17:19 Medical Decision Making MDM Narrative Medical decision making narrative: -Presentation: 37-year-old with known seizure diagnosis presenting with his typical seizure. This time he is A&O x4 with a normal neurologic exam. basic lab work has been ordered and patient has been given fluid resuscitation. Seizure precautions ordered -DDX includes but is not limited to: seizure disorder, breakthrough seizures, status epilepticus -Co-morbidities complicating care: atypical seizure disorder, bradycardia, anxiety -Social determinants of health: patient is unemployed due to his seizure disorder, lives with his brother -External Chart Review: none -Hx from independent Sources: EMS report -Discussion of Management/Consultants: none -Independent interpretation of studies: CBCs within normal limits. Metabolic panel is unremarkable. Alcohol was undetectable. Dx tests considered but not ordered: none -Procedures: none -Interventions: 1 L normal saline -Shared decision making / Disposition: patient was monitored for several hours with no recurrence of his symptoms. His lower extremity weakness has resolved and is comfortable going home. Patient will be discharged -RX Vital Signs Vital Signs: Vital Signs Temperature 97.8 F 02/13/23 16:51 Pulse Rate 56 L 02/13/23 16:51 Respiratory Rate 16
[2023-02-13 20:37] LABS: Basophils Absolute Auto 0.1 K/mm3 (0.0-0.1); Basophils Percent Auto 0.8 % (0.2-1.2); Eosinophils Absolute Auto 0.1 K/mm3 (0-0.3); Eosinophils Percent Auto 1.4 % (0-4.4); Hematocrit 42.5 % (42.0-52.0); Hemoglobin 14.2 g/dL (14.0-18.0); Immature Granulocyte Absolute 0.01 K/mm3 (0.00-0.031); Immature Granulocyte Percent A 0.2 % (0-0.5); Lymphocytes Percent Auto 33.7 % (18.3-44.2); Mean Corpuscular HGB Conc 33.4 g/dl (32-36); Mean Corpuscular Hemoglobin 30.1 pg (26-34); Mean Corpuscular Volume 90.2 fl (80-100); Mean Platelet Volume 9.7 fl (7.4-10.4); Monocytes Absolute Auto 0.5 K/mm3 (0.1-0.6); Monocytes Percent Auto 7.2 % (2.6-8.5); Neutrophils Absolute Auto 3.7 K/mm3 (1.3-6.7); Neutrophils Percent Auto 56.7 % (45.5-73.1); Platelet Count Result 208 k/mm3 (150-375); Red Blood Count 4.71 M/mm3 (4.6-6.20); Red Cell Distribution Width 12.5 % (11.5-14.5); White Blood Count 6.5 K/mm3 (4.5-10.0)
[2023-02-13 20:48] LABS: Ethanol < 10 mg/dL (<10)
[2023-02-13 21:27] LABS: Anion Gap 5 mmol/L (8-16); Blood Urea Nitrogen 14 mg/dL (9-20); Calcium 8.6 mg/dL (8.4-10.2); Carbon Dioxide 28 mmol/L (22-30); Chloride 105 mmol/L (98-107); Estimated CRCL calculation 88 ml/min; Estimated Glomerular Filt Rate > 60; Glucose 85 mg/dL (65-110); Potassium 4.3 mmol/L (3.4-5.0); Sodium 138 mmol/L (137-145)
[2023-02-13 21:56] LABS: Magnesium 2.2 mg/dL (1.6-2.3)
== END 2023-02-13 23:14 | disposition home or self-care (01) ==
PROVIDERS: Emergency Provider Emergency Medicine; PCP Family Medicine
DX: G40.909 Epilepsy, unspecified, not intractable, without status epilepticus (principal); F17.290 Nicotine dependence, other tobacco product, uncomplicated
CPT/HCPCS: 36415; 80048; 80307; 83735; 85025; 96360; 96361; 99283; J7030

== ENCOUNTER 2023-08-28 18:45 | Emergency (ER) | payer BC, SELFPAY ==
[2023-08-28 18:46] VITALS: BP 114/76; PULSE 62; RESP 18; TEMP 36.5; O2SAT 97
[2023-08-28 18:50] VITALS: O2SAT 100; O2SAT 99
[2023-08-28 18:53] VITALS: BP 125/76; PULSE 64; RESP 17; O2SAT 98
[2023-08-28 19:20] VITALS: BP 122/76; PULSE 60; RESP 18; O2SAT 100
--- NOTE | 2023-08-28 20:34 | ED.SEIZURE ---
HPI - Seizure General Chief Complaint: Seizure Stated Complaint: seizure Time Seen by Provider: 08/28/23 20:03 History of Present Illness HPI Narrative: 38 y/o M with a known history of seizure disorder reports for evaluation after 2 seizures today. Patient states that her seizure earlier today where he was talking incoherently and began convulsing. He had another one about an hour ago with his brother who witnessed the seizure. Patient states his brother stated he stumbles. Patient states his seizures in his symptoms defer because the mother to in bowels or talking coherently. He states he has not had a seizure in approximately 6 months. He is on Depakote and lamotrigine has not missed any doses. He has a neurologist at [facility] sees regularly. He last saw him approximately 3-4 weeks ago and had a head CT performed. He is reporting a bitemporal headache which she states is normal after he has seizures. Denies chest pain or shortness of breath, nausea or vomiting, or alcohol use. No recent illness. No vision changes or focal deficits. States he did not hit his head, denies neck pain. Seizure History: Yes Related Data Allergies Allergy/AdvReac Type Severity Reaction Status Date / Time No Known Allergies Allergy Verified 08/28/23 18:49 Review of Systems Review of Systems: CONSTITUTIONAL: Denies fever, chills, or sweats. EYES: Denies visual changes, redness, or discharge. ENT: Denies rhinorrhea, congestion, sore throat, or otalgia. CARDIOVASCULAR: Denies chest pain, palpitations, or edema. RESPIRATORY: Denies cough or dyspnea. GASTROINTESTINAL: Denies abdominal pain, nausea, vomiting, or diarrhea. GENITOURINARY: Denies dysuria or hematuria. SKIN: Denies rash or itching. MUSCULOSKELETAL: Denies back pain, joint pain, or myalgia. NEUROLOGIC: see HPI PSYCHIATRIC: Denies anxiety or depression. [facility]MERLY [facility], [facility] Past Medical History Medical History Bradycardia Seizures Surgical History Surgical History No history of previous surgery Social History Social History Tobacco type: e-cigarettes/vaping Substance use type: marijuana Gender identity (if verbalized by the patient): Male Sexual Orientation (if Verbalized by the Patient): Straight or Heterosexual Exam Narrative: GENERAL: Well-appearing, well-nourished, and in no acute distress. patient resting comfortably in exam bed. He is pleasant and conversational. HEAD: Normocephalic, atraumatic. No lacerations, abrasions, ecchymosis, hematomas. EYES: PERRLA and EOMI. ENT: Nares clear, no rhinorrhea or epistaxis. Mucous membranes moist. No hemotympanums NECK: Supple. No midline cervical spinous tenderness, step offs or deformities CHEST: Clear to auscultation. No respiratory distress. HEART: Regular rate and rhythm. No murmur heard. Normal peripheral pulses. ABDOMEN: Soft, nontender, nondistended, normal active bowel sounds. EXTREMITIES: Normal range of motion. No edema. SKIN: Warm, dry, no rash. NEURO: No focal deficits. Alert and oriented x3. Cranial nerves 2-12 intact. Strength 5/5 in BUE and BLE. Sensation intact throughout. No pronator drift. Normal [id number]. No aphasia or dysarthria. Course Vital Signs Vital signs: Vital Signs Temperature 97.7 F 08/28/23 18:46 Pulse Rate 62 08/28/23 18:46 Respiratory Rate 18 08/28/23 18:46 Blood Pressure 114/76 08/28/23 18:46 Pulse Oximetry 97 08/28/23 18:46 Oxygen Delivery Room Air 08/28/23 18:46 Temperature 97.7 F 08/28/23 18:46 Pulse Rate 60 08/28/23 22:42 Respiratory Rate 18 08/28/23 22:42 Blood Pressure 122/71 08/28/23 22:42 Pulse Oximetry 97 08/28/23 22:42 Oxygen Delivery Room Air 08/28/23 18:50 MDM - Seizure MDM Narrative Medical decision making narrative: 38-year-old
[2023-08-28] MEDS: SODIUM CHLORIDE 0.9% IV 1,000 ML 999 ML IV CONT (20:40)
[2023-08-28] MEDS: PROCHLORPERAZINE EDISYLATE 10 MG/2 ML VIAL IV PUSH (20:41)
[2023-08-28] MEDS: diphenhydrAMINE HCl INJ 50 MG/ML VIAL 25 MG IV PUSH (20:44)
[2023-08-28] MEDS: KETOROLAC 30 MG/ML VIAL (*BKC) IV PUSH (20:44)
[2023-08-28 21:07] LABS: Basophils Absolute Auto 0.1 K/mm3 (0.0-0.1); Basophils Percent Auto 0.6 % (0.2-1.2); Eosinophils Absolute Auto 0.1 K/mm3 (0-0.3); Eosinophils Percent Auto 0.6 % (0-4.4); Hematocrit 47.9 % (42.0-52.0); Hemoglobin 15.9 g/dL (14.0-18.0); Immature Granulocyte Absolute 0.02 K/mm3 (0.00-0.031); Immature Granulocyte Percent A 0.2 % (0-0.5); Lymphocytes Absolute Auto 1.66 K/mm3 (0.9-3.2); Lymphocytes Percent Auto 18.7 % (18.3-44.2); Mean Corpuscular HGB Conc 33.2 g/dl (32-36); Mean Corpuscular Volume 90.4 fl (80-100); Mean Platelet Volume 9.7 fl (7.4-10.4); Monocytes Absolute Auto 0.5 K/mm3 (0.1-0.6); Monocytes Percent Auto 6.1 % (2.6-8.5); Neutrophils Absolute Auto 6.6 K/mm3 (1.3-6.7); Neutrophils Percent Auto 73.8 % (45.5-73.1); Platelet Count Result 219 k/mm3 (150-375); Red Cell Distribution Width 12.7 % (11.5-14.5); White Blood Count 8.9 K/mm3 (4.5-10.0)
[2023-08-28 22:11] LABS: Alanine Aminotransferase 14 U/L (6-50); Albumin Level 3.6 g/dL (3.5-5.1); Alkaline Phosphatase 69 U/L (38-126); Anion Gap 4 mmol/L (8-16); Aspartate Amino Transferase 19 U/L (17-59); Bilirubin,Total 0.8 mg/dL (0.2-1.3); Blood Urea Nitrogen 10 mg/dL (9-20); Calcium 7.3 mg/dL (8.4-10.2); Carbon Dioxide 23 mmol/L (22-30); Chloride 108 mmol/L (98-107); Estimated CRCL calculation 114 ml/min; Estimated Glomerular Filt Rate > 60; Glucose 87 mg/dL (65-110); Potassium 3.6 mmol/L (3.4-5.0); Sodium 135 mmol/L (137-145)
[2023-08-28 22:29] VITALS: BP 120/73; PULSE 62; RESP 18; O2SAT 99
[2023-08-28 22:42] VITALS: BP 122/71; PULSE 60; RESP 18; O2SAT 97
== END 2023-08-28 22:43 | disposition home or self-care (01) ==
PROVIDERS: Emergency Provider Physician Assistant; PCP Family Medicine
DX: G40.909 Epilepsy, unspecified, not intractable, without status epilepticus (principal); F17.290 Nicotine dependence, other tobacco product, uncomplicated
CPT/HCPCS: 36415; 80053; 85025; 96361; 96374; 96375; 99284; J0780; J1200; J1885; J7030

== ENCOUNTER 2023-10-20 13:09 | Emergency (ER) | payer BC, SELFPAY ==
--- NOTE | ~2023-10-20 | CT_ITS ---
EXAMINATION: CT brain wo con INDICATION: Possible seizure COMPARISON: 07/28/2022 TECHNIQUE: Standard unenhanced head CT. The dose-length product (DLP) was 605.33 mGy-cm. The mA was a djusted according to patient size. Iterative reconstruction technique was employed. FINDINGS: No intracranial hemorrhage, acute infarction, or abnormal mass lesion. The ventricles are n ormal. No abnormal mass effect or midline shift. The damon-white matter differentiation is normal. The basal cisterns are patent. The orbits are normal. There is mild mucosal thickening of the paranasal sinuses. IMPRESSION: 1. No acute intracranial abnormality. Reviewed, dictated and finalized at location B. E RECEIVING CLERK
--- NOTE | ~2023-10-20 | XR_ITS ---
EXAMINATION: XR chest 1V INDICATION: Possible seizure TECHNIQUE: AP view of the chest is obtained COMPARISON: 07/28/2022 FINDINGS: The lungs are free of acute opacities. No pleural effusion or pneumothorax. The cardiomedia stinal silhouette is normal. IMPRESSION: 1. No acute cardiopulmonary abnormality. Reviewed, dictated and finalized at location B. NOLOGY COORDINATOR
[2023-10-20 13:14] VITALS: BP 142/88; PULSE 102; RESP 16; TEMP 36.6; O2SAT 98
[2023-10-20 15:00] VITALS: BP 102/64; PULSE 48; RESP 16; O2SAT 100
--- NOTE | 2023-10-20 15:01 | ECG_ITS ---
Measurements Intervals [place] Rate: 52 P: 67 CA: 192 QRS: 41 QRSD: 105 T: 62 QT: 446 QTc: 418 Interpretive Statements SINUS BRADYCARDIA INCOMPLETE RIGHT BUNDLE BRANCH BLOCK [90+ ms QRS DURATION, TERMINAL R IN V1/V2, 40+ ms S IN I/aVL/V4/V5/V6] COMPARED TO ECG 07/28/2022 20:26:21 SINUS BRADYCARDIA NOW PRESENT Electronically Signed On 10-21-2023 8:59:04 LEARNING SUPPORT AIDE by Lucille Hopkins M.D.
--- NOTE | 2023-10-20 15:01 | ED.GENADULT ---
HPI - General Adult General Chief complaint: Unspecified Stated complaint: ams Time Seen by Provider: 10/20/23 15:00 Source: patient and EMS Mode of arrival: EMS History of Present Illness HPI narrative: 38 years old white male came to the emergency room from home by ambulance because sudden onset of dizziness, everything spinning, associated with nausea and vomiting, worse with movement, better with remaining still. History of seizure, which usually tonic clonic associated with unresponsiveness. Today after having this kind of dizziness started having shaking all over, we had trouble to stop the shaking, denies biting his tongue or urinary incontinence or loss of consciousness. He is telling me this is not seizure this is just dizziness. Patient denies any fever, chills, headache, chest pain abdominal pain or urinary symptoms. Related Data Home Medications Medication Instructions Recorded Confirmed clonazepam 1 mg tablet mg 10/20/23 10/20/23 lacosamide 200 mg tablet mg 10/20/23 lamotrigine 100 mg tablet mg 10/20/23 10/20/23 Allergies Allergy/AdvReac Type Severity Reaction Status Date / Time No Known Allergies Allergy Verified 10/20/23 13:15 Review of Systems Review of Systems: All systems reviewed & are unremarkable except as noted in HPI and below PMFSH Past Medical History Medical History Bradycardia Seizures Surgical History Surgical History No history of previous surgery Social History Social History Tobacco type: e-cigarettes/vaping Substance use type: marijuana Gender identity (if verbalized by the patient): Male Sexual Orientation (if Verbalized by the Patient): Straight or Heterosexual Exam Narrative: General appearance: Well-developed, well-nourished Skin: Normal color Head: Normocephalic, nontraumatic Eyes: Clear conjunctiva ENT: Oropharynx normal, ears normal, nose normal Neck: Supple, nontender Chest and respiratory: Airway patent, no respiratory distress, no accessory muscle use Heart: Regular rate/rhythm Abdomen: Soft, nontender, no organomegaly, quiet bowel sounds Vascular: Normal peripheral pulses, normal capillary refill. Musculoskeletal: Normal range of motion, nontender back Neurologic: Alert and oriented ?3, STAFFING MANAGER is normal as tested, no gross motor deficit Course Reevaluation(s) Reevaluation #1: Currently patient is asymptomatic Date: 10/20/23 Time: 19:03 Vital Signs Vital signs: Vital Signs Temperature 36.6 C 10/20/23 13:14 Pulse Rate 102 H 10/20/23 13:14 Respiratory Rate 16 10/20/23 13:14 Blood Pressure 142/88 H 10/20/23 13:14 Pulse Oximetry 98 10/20/23 13:14 Temperature 36.6 C 10/20/23 13:14 Pulse Rate 77 10/20/23 18:30 Respiratory Rate 16 10/20/23 18:30 Blood Pressure 118/70 10/20/23 18:30 Pulse Oximetry 99 10/20/23 18:30 Medical Decision Making MDM Narrative Medical decision making narrative: patient presents with dizziness, everything just pains with nausea and vomiting, seems like benign positional vertigo. Vital signs are stable, physical examination is unremarkable Differential diagnosis benign positional vertigo, anxiety related symptoms patient on lorazepam, history of seizure. Workup today showed no acute abnormalities, urinalysis and urine drug screen within normal limits.CT scan of the head and chest x-ray showed no acute abnormalities, patient is feeling much better compared to on arrival to the ED, currently is asymptomatic. In the ED patient received 5 mg o
--- NOTE | 2023-10-20 15:30 | PC.NURSE ---
PT STATES HE DOESN'T FEEL THE NEED TO URINATE AND DOESN'T WANT TO BE CATHED. WILL WAIT AND ASK LATER.
[2023-10-20 16:00] VITALS: BP 106/70; PULSE 55; RESP 16; O2SAT 98
[2023-10-20] MEDS: SODIUM CHLORIDE 0.9% IV 1,000 ML 999 ML IV CONT (16:24)
--- NOTE | 2023-10-20 16:30 | PC.NURSE ---
PT ATTEMPTING TO URINATE AT THIS TIME. STILL DOESNT WANT TO BE CATHED FOR SAMPLE
[2023-10-20 16:37] LABS: Basophils Percent Auto 0.4 % (0.2-1.2); Eosinophils Percent Auto 0.3 % (0-4.4); Hematocrit 44.2 % (42.0-52.0); Hemoglobin 14.6 g/dL (14.0-18.0); Immature Granulocyte Absolute 0.03 K/mm3 (0.00-0.031); Immature Granulocyte Percent A 0.4 % (0-0.5); Lymphocytes Absolute Auto 1.31 K/mm3 (0.9-3.2); Lymphocytes Percent Auto 17.9 % (18.3-44.2); Mean Corpuscular Hemoglobin 29.8 pg (26-34); Mean Corpuscular Volume 90.2 fl (80-100); Mean Platelet Volume 9.9 fl (7.4-10.4); Monocytes Absolute Auto 0.5 K/mm3 (0.1-0.6); Monocytes Percent Auto 6.4 % (2.6-8.5); Neutrophils Absolute Auto 5.5 K/mm3 (1.3-6.7); Neutrophils Percent Auto 74.6 % (45.5-73.1); Platelet Count Result 198 k/mm3 (150-375); Red Cell Distribution Width 12.8 % (11.5-14.5); White Blood Count 7.3 K/mm3 (4.5-10.0)
[2023-10-20 16:53] LABS: Ethanol < 10 mg/dL (<10)
[2023-10-20 16:54] LABS: Alanine Aminotransferase 20 U/L (6-50); Albumin Level 4.3 g/dL (3.5-5.1); Alkaline Phosphatase 89 U/L (38-126); Anion Gap 11 mmol/L (8-16); Aspartate Amino Transferase 29 U/L (17-59); Bilirubin,Total 0.6 mg/dL (0.2-1.3); Blood Urea Nitrogen 15 mg/dL (9-20); Carbon Dioxide 24 mmol/L (22-30); Chloride 104 mmol/L (98-107); Estimated CRCL calculation 83 ml/min; Estimated Glomerular Filt Rate > 60; Glucose 90 mg/dL (65-110); Sodium 139 mmol/L (137-145)
[2023-10-20 17:00] VITALS: BP 104/71; PULSE 80; RESP 16; O2SAT 99
[2023-10-20 17:24] LABS: Thyroid Stimulating Hormone 0.322 uIU/mL (0.465-4.680)
[2023-10-20 17:58] LABS: Appearance Urine Clear (Clear); Bacteria Urine None Seen /hpf; Bilirubin Urine Negative (Negative); Blood Urine Negative (Negative); Color Urine Yellow (Yellow); Glucose Urine UA Negative (Negative); Ketones Urine Trace mg/dL (Negative); Leukocyte Esterase Ur Negative LEU/UL (Negative); Nitrate Urine Negative (Negative); Non Pathogenic Casts 0-2; Protein Urine Trace mg/dL (Negative); RBC Urine 0-2 /hpf (0-2); Specific Grav Ur 1.028 (1.001-1.035); Squamous Epithelial Cell Urine None seen /hpf (Few); WBC Urine 0-5 /hpf
[2023-10-20 18:01] LABS: Add Urine Microscopic? YES
[2023-10-20] MEDS: ONDANSETRON HCL ODT 4 MG TABLET PO (18:25)
[2023-10-20] MEDS: diazePAM (*CRX) 5 MG TABLET PO (18:26)
[2023-10-20] MEDS: MECLIZINE HCL 25 MG TABLET PO (18:26)
[2023-10-20 18:30] VITALS: BP 118/70; PULSE 77; RESP 16; O2SAT 99
--- NOTE | 2023-10-20 18:40 | PC.NURSE ---
UDS STILL IN PROGRESS. ELLY FROM CHEMISTRY STATES HE IS RUNNING CONTROLS ON THE MACHINE AND THEN HE WILL PUT THE URINE ON THE ANALYZER FOR TESTING
[2023-10-20 19:05] VITALS: BP 122/74; PULSE 63; RESP 16; O2SAT 100
[2023-10-20 19:22] LABS: Amphetamine Screen Urine Negative (Negative); Barbiturate Screen Urine Negative (Negative); Benzodiazepines Screen Urine Negative (Negative); Cannabinoid Screen Urine Positive (Negative); Cocaine Screen Urine Negative (Negative); Methadone Screen Urine Negative (Negative); Opiate Screen Urine Negative (Negative); Phencyclidine Screen Urine Negative (Negative)
== END 2023-10-20 19:10 | disposition home or self-care (01) ==
PROVIDERS: Emergency Provider Emergency Medicine; PCP Family Medicine
DX: H81.10 Benign paroxysmal vertigo, unspecified ear (principal); G40.909 Epilepsy, unspecified, not intractable, without status epilepticus; F17.290 Nicotine dependence, other tobacco product, uncomplicated; R00.1 Bradycardia, unspecified; I45.10 Unspecified right bundle-branch block
CPT/HCPCS: 36415; 70450; 71045; 80053; 80307; 81001; 84443; 85025; 93005; 96360; 99284; A9270; J7030

== ENCOUNTER 2024-01-27 05:14 | Emergency (ER) | payer BC, SELFPAY ==
[2024-01-27 05:12] VITALS: BP 123/72; PULSE 77; RESP 12; TEMP 36.4; O2SAT 97
--- NOTE | 2024-01-27 05:22 | ECG_ITS ---
Measurements Intervals [place] Rate: 63 P: 73 RI: 181 QRS: 41 QRSD: 97 T: 64 QT: 406 QTc: 417 Interpretive Statements SINUS RHYTHM INCOMPLETE RIGHT BUNDLE BRANCH BLOCK BORDERLINE ECG COMPARED TO ECG 10/20/2023 17:35:32 SINUS RHYTHM NOW PRESENT Electronically Signed On 01-27-2024 7:37:37 CDT by Surya Andrews D.O.
[2024-01-27 05:31] LABS: Basophils Absolute Auto 0.1 K/mm3 (0.0-0.1); Basophils Percent Auto 0.8 % (0.2-1.2); Eosinophils Absolute Auto 0.4 K/mm3 (0-0.3); Hematocrit 49.6 % (42.0-52.0); Hemoglobin 16.5 g/dL (14.0-18.0); Immature Granulocyte Absolute 0.04 K/mm3 (0.00-0.031); Immature Granulocyte Percent A 0.5 % (0-0.5); Lymphocytes Absolute Auto 2.05 K/mm3 (0.9-3.2); Lymphocytes Percent Auto 25.6 % (18.3-44.2); Mean Corpuscular HGB Conc 33.3 g/dl (32-36); Mean Corpuscular Volume 90.2 fl (80-100); Mean Platelet Volume 10.2 fl (7.4-10.4); Monocytes Absolute Auto 0.6 K/mm3 (0.1-0.6); Monocytes Percent Auto 7.4 % (2.6-8.5); Neutrophils Absolute Auto 4.9 K/mm3 (1.3-6.7); Neutrophils Percent Auto 60.7 % (45.5-73.1); Platelet Count Result 263 k/mm3 (150-375); Red Cell Distribution Width 12.5 % (11.5-14.5)
[2024-01-27 05:43] LABS: Alanine Aminotransferase 26 U/L (6-50); Alkaline Phosphatase 71 U/L (38-126); Anion Gap 17 mmol/L (4-12); Aspartate Amino Transferase 33 U/L (17-59); Bilirubin,Total 0.5 mg/dL (0.2-1.3); Blood Urea Nitrogen 16 mg/dL (9-20); Calcium 9.6 mg/dL (8.4-10.2); Carbon Dioxide 17 mmol/L (22-30); Chloride 104 mmol/L (98-107); Estimated CRCL calculation 92 ml/min; Estimated Glomerular Filt Rate > 60; Glucose 136 mg/dL (65-110); Sodium 138 mmol/L (137-145)
[2024-01-27 05:44] LABS: Partial Thromboplastin Time 28.6 Seconds (22.3-36.8)
[2024-01-27 06:44] VITALS: BP 119/80; PULSE 61; RESP 17; O2SAT 98
[2024-01-27 08:00] VITALS: BP 110/74; PULSE 54; RESP 18; O2SAT 97
--- NOTE | 2024-01-27 11:09 | ED.SEIZURE ---
HPI - Seizure General Chief Complaint: Seizure Stated Complaint: seizure Time Seen by Provider: 01/27/24 07:06 History of Present Illness HPI Narrative: Patient with history of seizures on medications presents here after a suspected seizure, patient does not remember much other than apparently falling out of his couch, he has not had a seizure in several months, he generally takes his medications daily but has not taken it this morning. Denies any complaints to me. Seizure History: Yes Related Data Home Medications Medication Instructions Recorded Confirmed clonazepam 1 mg tablet mg 10/20/23 10/20/23 lacosamide 200 mg tablet mg 10/20/23 lamotrigine 100 mg tablet mg 10/20/23 10/20/23 Allergies Allergy/AdvReac Type Severity Reaction Status Date / Time No Known Allergies Allergy Verified 10/20/23 13:15 Review of Systems Review of Systems: CONST: No fever. HEENT: No sore throat C/V: No chest pain RESP: No cough GI: No nausea vomiting : No dysuria. M/S: No joint pain. SKIN: No rash. NEURO: seizure PSYCH: [No depression] [facility] Past Medical History Medical History Bradycardia Seizures Surgical History Surgical History No history of previous surgery Social History Social History Tobacco type: e-cigarettes/vaping Substance use type: marijuana Gender identity (if verbalized by the patient): Male Sexual Orientation (if Verbalized by the Patient): Straight or Heterosexual Exam Narrative: EXAMINATION OF ORGAN SYSTEMS/BODY AREAS: Constitutional: Vital signs per nursing GENERAL:[No acute distress, non-toxic appearing.] HEAD: Normal with no signs of head trauma. EYES: EOMI, conjunctiva normal, PERRL ENT: Hearing grossly intact LUNGS: Nonlabored breathing. HEART: [Regular rate and rhythm] ABD: [Soft], [nontender to palpation] EXT: Normal range of motion SKIN: [No rashes or lesions.] NEURO: [Alert and oriented x 3. No gross focal sensory or strength deficits.] speaking with clear speech PSYCH: Normal affect Course Vital Signs Vital signs: Vital Signs Temperature 97.6 F 01/27/24 05:12 Pulse Rate 77 01/27/24 05:12 Respiratory Rate 12 01/27/24 05:12 Blood Pressure 123/72 01/27/24 05:12 Pulse Oximetry 97 01/27/24 05:12 Oxygen Delivery Room Air 01/27/24 05:12 Temperature 97.6 F 01/27/24 05:12 Pulse Rate 54 L 01/27/24 08:00 Respiratory Rate 18 01/27/24 08:00 Blood Pressure 110/74 01/27/24 08:00 Pulse Oximetry 97 01/27/24 08:00 Oxygen Delivery Room Air 01/27/24 05:17 MDM - Seizure MDM Narrative Medical decision making narrative: 38M presenting with breakthrough seizures occurring today. Accu-Chek is normal. Seizure precautions are initiated. Was initially post-ictal but on my re-evaluation was back to baseline. [He] remained stable in the emergency department for a period of observation without any recurrence of the symptoms and was discharged in stable condition with return precautions and outpatient follow-up. Lab Data 01/27/24 05:25 01/27/24 05:25 Labs: Lab Results 01/27/24 Range/Units 05:25 WBC 8.0 (4.5-10.0) K/mm3 RBC 5.50 (4.6-6.20) M/mm3 Hgb 16.5 (14.0-18.0) g/dL Hct 49.6 (42.0-52.0) % MCV 90.2 (80-100) fl MCH 30.0 (26-34) pg MCHC 33.3 (32-36) g/dl RDW 12.5 (11.5-14.5) % Plt Count 263 (150-375) k/mm3 MPV 10.2 (7.4-10.4) fl Immature Gran % (Auto) 0.5 (0-0.5) % Neut % (Auto) 60.7 (45.5-73.1) % Lymph % (Auto) 25.6 (18.3-44.2) % [place] % (Auto) 7.4 (2.6-8.5) % Eos % (Auto) 5.0 H (0-4.4) % Baso % (Auto) 0.8 (0.2-1.2) % Lymph # (Auto) 2.05 (0.9-3.2) K/mm3 [place] # (Auto) 0.6 (0.1-0.6) K/mm3 Eos # (Auto) 0.4 H (0-0.3) K/mm3 Baso # (Auto) 0.1 (0.0-0.1) K/mm3 Abs Immat Gran (
== END 2024-01-27 08:02 | disposition home or self-care (01) ==
PROVIDERS: Student in an Organized Health Care Education/Training Program; Emergency Provider Emergency Medicine; PCP Family Medicine
DX: G40.909 Epilepsy, unspecified, not intractable, without status epilepticus (principal); F17.290 Nicotine dependence, other tobacco product, uncomplicated; F12.90 Cannabis use, unspecified, uncomplicated
CPT/HCPCS: 36415; 80053; 85025; 85610; 85730; 93005; 99284

== ENCOUNTER 2024-01-28 | Emergency (ER) | payer BC, SELFPAY ==
[2024-01-27 23:59] VITALS: BP 115/67; PULSE 65; RESP 16; TEMP 36.7; O2SAT 97
[2024-01-28] VITALS (52 sets, daily range): BP systolic 102–128; BP diastolic 54–97; PULSE 46–78; RESP 13–28; O2SAT 93–100
--- NOTE | ~2024-01-28 | CT_ITS ---
EXAMINATION: CT brain wo con DATE: 01/28/2024 03:56 INDICATION: Rolled lateral seizures today TECHNIQUE: Computed tomography (CT) of the head was performed without intravenous contrast. The mA wa s adjusted according to patient size. Iterative reconstruction technique was employed. Exam dose: 68 1.00 mGy-cm total exam DLP. COMPARISON: 10/20/2023 CT brain FINDINGS: Left vertebral artery calcification. Greater than expected cerebral cortical volume loss for age. No intracranial mass lesion, hemorrhage or recent cerebrovascular accident, midline shift or mass eff ect. No subdural or epidural hematoma is detected. Bilateral drusen. The upper maxillary sinuses are included skeletal with minimal mucoperiosteal thickening on the right and moderately prominent mucoperiosteal thickening of the left maxillary sinus. There is some septal soft tissue thickening of the ethmoids posteriorly on the left. The frontal and sphenoid sinuses ana laura ear normal. The mastoid air cells are well-developed and aerated. No fracture or bone destruction of the cranial vault. IMPRESSION: Left vertebral artery calcification Greater than expected cerebral volume loss for age Bilateral drusen Bilateral maxillary sinus posterior left ethmoid soft tissue thickening Reviewed, dictated and finalized at Location A. Reviewed, dictated and finalized at location A.
--- NOTE | 2024-01-28 00:04 | ECG_ITS ---
Measurements Intervals [place] Rate: 51 P: 66 NC: 170 QRS: 36 QRSD: 99 T: 65 QT: 405 QTc: 376 Interpretive Statements SINUS BRADYCARDIA INCOMPLETE RIGHT BUNDLE BRANCH BLOCK BORDERLINE ECG COMPARED TO ECG 01/27/2024 05:27:09 SINUS BRADYCARDIA NOW PRESENT Electronically Signed On 01-28-2024 8:11:39 CDT by Surya Andrews D.O.
[2024-01-28 00:09] LABS: Glucose Point of Care 145 mg/dl (65-105)
--- NOTE | 2024-01-28 00:17 | ED.SEIZURE ---
HPI - Seizure General Chief Complaint: Seizure <KING Chavez Last Filed: 01/28/24 03:54> Stated Complaint: seizure precaution <KING Chavez Last Filed: 01/28/24 03:54> Time Seen by Provider: 01/28/24 00:04 <KING Chavez Last Filed: 01/28/24 03:54> Source: patient and old records reviewed <KING Chavez Last Filed: 01/28/24 03:54> Mode of arrival: EMS <KING Chavez Last Filed: 01/28/24 03:54> Limitations: no limitations <KING Chavez Last Filed: 01/28/24 03:54> History of Present Illness HPI Narrative: Patient is a 38-year-old male who presents the ED via EMS with report of seizure. Patient has history of epilepsy and is on lamotrigine and lacosamide for seizures. He was seen in our ED earlier today for breakthrough seizure. Workup was unremarkable, he was observed for several hours and discharged home. Patient then states he had another seizure tonight which was witnessed by his brother. EMS was contacted. Patient states his seizures are very sporadic. Can go months without having one. he does remember eating dinner tonight, but is unclear about the events of the rest the night. States he feels fatigued currently. Denies any other acute complaints. Denies numbness, weakness, vision changes, dizziness, nausea, vomiting, chest pain, shortness breath. Neurology = Dr. Reddy. Per records, patient has been seen in our ED numerous times for breakthrough seizures. <KING Chavez Last Filed: 01/28/24 03:54> Seizure History: Yes <KING Chavez Last Filed: 01/28/24 03:54> Related Data Home Medications: Home Medications Medication Instructions Recorded Confirmed clonazepam 1 mg tablet mg 10/20/23 10/20/23 lacosamide 200 mg tablet mg 10/20/23 lamotrigine 100 mg tablet mg 10/20/23 10/20/23 <Melida Almonte PA-C - Last Filed: 01/28/24 03:54> Allergies/Adverse Reactions: Allergies Allergy/AdvReac Type Severity Reaction Status Date / Time No Known Allergies Allergy Verified 10/20/23 13:15 <Melida Almonte PA-C - Last Filed: 01/28/24 03:54> Review of Systems Review of Systems: CONSTITUTIONAL: Denies fever, chills, or sweats. ENT: Denies Vision changes. CARDIOVASCULAR: Denies chest pain. RESPIRATORY: Denies dyspnea. GASTROINTESTINAL: Denies abdominal pain, nausea, vomiting. MUSCULOSKELETAL: Denies back pain, extremity pain, myalgia. NEUROLOGIC: See HPI. <Melida Almonte PA-C - Last Filed: 01/28/24 03:54> All systems reviewed & are unremarkable except as noted in HPI and below <Melida Almonte PA-C - Last Filed: 01/28/24 03:54> PMFSH Past Medical History Medical History: Medical History Bradycardia Seizures <Melida Almonte PA-C - Last Filed: 01/28/24 03:54> Surgical History Surgical History: Surgical History No history of previous surgery <Melida Almonte PA-C - Last Filed: 01/28/24 03:54> Social History Social History: Social History Tobacco type: e-cigarettes/vaping Substance use type: marijuana Gender identity (if verbalized by the patient): Male Sexual Orientation (if Verbalized by the Patient): Straight or Heterosexual <Melida Almonte PA-C - Last Filed: 01/28/24 03:54> Exam Narrative: GENERAL: Mildly fatigued appearing, well-nourished, non-toxic, in no acute distress. HEAD: Normocephalic, atraumatic. EYES: PERRL/EOMI, conjunctivae clear bilaterally. No nystagmus. NECK: Supple. No meningeal signs. RESPIRATORY: Airway patent, respirations nonlabored. Clear to auscultation bilaterally, no rales, rhonchi, wheezing. CARDIOVASCULAR: Regular rate and rhythm without
[2024-01-28 00:58] LABS: Basophils Percent Auto 0.2 % (0.2-1.2); Eosinophils Percent Auto 0.1 % (0-4.4); Hematocrit 46.3 % (42.0-52.0); Hemoglobin 15.7 g/dL (14.0-18.0); Immature Granulocyte Absolute 0.05 K/mm3 (0.00-0.031); Immature Granulocyte Percent A 0.4 % (0-0.5); Immature Platelet Fraction Pct 6.4 % (0.9-11.2); Lymphocytes Absolute Auto 1.33 K/mm3 (0.9-3.2); Lymphocytes Percent Auto 9.8 % (18.3-44.2); Mean Corpuscular HGB Conc 33.9 g/dl (32-36); Mean Corpuscular Hemoglobin 29.7 pg (26-34); Mean Corpuscular Volume 87.5 fl (80-100); Mean Platelet Volume 10.6 fl (7.4-10.4); Monocytes Absolute Auto 0.9 K/mm3 (0.1-0.6); Monocytes Percent Auto 6.3 % (2.6-8.5); Neutrophils Absolute Auto 11.3 K/mm3 (1.3-6.7); Neutrophils Percent Auto 83.2 % (45.5-73.1); Platelet Count Result 219 k/mm3 (150-375); Red Blood Count 5.29 M/mm3 (4.6-6.20); Red Cell Distribution Width 12.4 % (11.5-14.5); White Blood Count 13.6 K/mm3 (4.5-10.0)
[2024-01-28 01:08] LABS: Alanine Aminotransferase 25 U/L (6-50); Alkaline Phosphatase 78 U/L (38-126); Anion Gap 10 mmol/L (4-12); Aspartate Amino Transferase 34 U/L (17-59); Bilirubin,Total 0.8 mg/dL (0.2-1.3); Blood Urea Nitrogen 17 mg/dL (9-20); Carbon Dioxide 23 mmol/L (22-30); Chloride 103 mmol/L (98-107); Estimated CRCL calculation 117 ml/min; Estimated Glomerular Filt Rate > 60; Glucose 132 mg/dL (65-110); Magnesium 2.5 mg/dL (1.6-2.3); Potassium 4.3 mmol/L (3.4-5.0); Sodium 136 mmol/L (137-145)
[2024-01-28 01:08] LABS: Ethanol < 10 mg/dL (<10)
[2024-01-28] MEDS: SODIUM CHLORIDE 0.9% IV 1,000 ML 999 ML IV CONT (01:13)
[2024-01-28] MEDS: ACETAMINOPHEN 500 MG TABLET 1000 MG PO (02:47)
== END 2024-01-28 06:56 | disposition home or self-care (01) ==
PROVIDERS: Physician Assistant; Emergency Provider Student in an Organized Health Care Education/Training Program; PCP Family Medicine
DX: R56.9 Unspecified convulsions (principal)
CPT/HCPCS: 36415; 70450; 80053; 80307; 82948; 83605; 83735; 85025; 85055; 93005; 96360; 99284; A9270; J7030

== ENCOUNTER 2024-11-15 14:45 | Emergency (ER) | payer MEDICARE, MEDICAID, SELFPAY ==
[2024-11-15] VITALS (28 sets, daily range): BP systolic 114–132; BP diastolic 60–77; PULSE 45–72; RESP 8–22; TEMP 36.6; O2SAT 93–100
--- NOTE | 2024-11-15 14:44 | ED_ITS ---
HPI - General Adult General Chief complaint: Seizure Stated complaint: seizure History of Present Illness HPI narrative: Patient 39-year-old gentleman who presents emergency department with chief complaint of seizure. Patient has prior history of seizure disorders followed by neurology in [place]. Patient reports that he had a single episode today reports that he had normal postictal phase reports that he is back to his baseline mental status. The patient reports no pain reports that he feels back to normal Related Data Home Medications ?Medication ?Instructions ?Recorded ?Confirmed ?Last Taken ?Type clonazepam 1 mg tablet mg 10/20/23 10/20/23 Unknown History lacosamide 200 mg tablet mg 10/20/23 Unknown History lamotrigine 100 mg tablet mg 10/20/23 10/20/23 Unknown History Allergies Allergy/AdvReac Type Severity Reaction Status Date / Time No Known Allergies Allergy Verified 10/20/23 13:15 Review of Systems 2 Review of Systems: A 10 system review of systems was completed on the patient and is negative except for what is stated in the HPI. Nursing and ancillary documentation was reviewed. [facility] Past Medical History Medical History Bradycardia Seizures Surgical History Surgical History No history of previous surgery Social History Social History Tobacco type: e-cigarettes/vaping Substance use type: marijuana Gender identity (if verbalized by the patient): Male Sexual Orientation (if Verbalized by the Patient): Straight or Heterosexual Exam 2 Narrative: GENERAL: Well-appearing, well-nourished, and in no acute distress. HEAD: Normocephalic, atraumatic. EYES: PERRLA and EOMI. ENT: Nares clear, no rhinorrhea or epistaxis. Mucous membranes moist. NECK: Supple. CHEST: Clear to auscultation. No respiratory distress. HEART: Regular rate and rhythm. No murmur heard. Normal peripheral pulses. ABDOMEN: Soft, nontender, nondistended, normal active bowel sounds. EXTREMITIES: Normal range of motion. No edema. SKIN: Warm, dry, no rash. NEURO: No focal deficits. Alert and oriented x3. PSYCH: Normal mood and affect. Course Vital Signs Vital signs: Vital Signs Temperature 36.6 C 11/15/24 14:38 Pulse Rate 60 11/15/24 14:38 Respiratory Rate 16 11/15/24 14:38 Blood Pressure 115/67 11/15/24 14:38 Pulse Oximetry 96 11/15/24 14:38 Oxygen Delivery Room Air 11/15/24 14:38 Temperature 36.6 C 11/15/24 14:38 Pulse Rate 57 L 11/15/24 15:01 Respiratory Rate 17 11/15/24 15:01 Blood Pressure 119/70 11/15/24 15:01 Pulse Oximetry 100 11/15/24 15:04 Oxygen Delivery Room Air 11/15/24 16:14 Medical Decision Making Vital Signs Vital Signs: Vital Signs Temperature 36.6 C 11/15/24 14:38 Pulse Rate 60 11/15/24 14:38 Respiratory Rate 16 11/15/24 14:38 Blood Pressure 115/67 11/15/24 14:38 Pulse Oximetry 96 11/15/24 14:38 Oxygen Delivery Room Air 11/15/24 14:38 Temperature 36.6 C 11/15/24 14:38 Pulse Rate 57 L 11/15/24 15:01 Respiratory Rate 17 11/15/24 15:01 Blood Pressure 119/70 11/15/24 15:01 Pulse Oximetry 100 11/15/24 15:04 Oxygen Delivery Room Air 11/15/24 16:14 Lab Data 11/15/24 15:02 11/15/24 15:02 Labs: Lab Results 11/15/24 Range/Units 15:02 WBC 8.2 (4.5-10.0) K/mm3 RBC 5.17 (4.6-6.20) M/mm3 Hgb 15.6 (14.0-18.0) g/dL Hct 46.3 (42.0-52.0) % MCV 89.6 (80-100) fl MCH 30.2 (26-34) pg MCHC 33.7 (32-36) g/dl RDW 12.3 (11.5-14.5) % Plt Count 243 (150-375) k/mm3 MPV 10.0 (7.4-10.4) fl Immature Gran % (Auto) 0.5 (0-0.5) % Neut % (Auto) 72.6 (45.5-73.1) % Lymph % (Auto) 21.0 (18.3-44.2) % Mora % (Auto) 4.6 (2.6-8.5) % Eos % (Auto) 0.7 (0-4.4) % Baso % (Auto) 0.6 (0.2-1.2) % Lymph # (Auto) 1.72 (0.9-3.2) K/mm3 Mora # (Auto) 0.4 (0.1-0.6) K/mm3 Eos # (Auto) 0.1 (0-0.3) K/mm3 Baso # (Auto) 0.1 (0.0-0.1) K/mm3 Abs Immat Gran (auto) 0.04 H (0.00-0.031) K/mm3 Absolute Neuts (auto) 6.0 (1.3-6.7) K/mm3 Absolute Nucleated RBC 0.000 (0.0-0.012) K/mm3 Nucleated RBC % 0.0 (0.0-0.2) % Sodium 136 L (137-145) mmol/L Potassium 4.4 (3.4-5.0) mmol/L Chloride 105 (98-107) mmol/L Carbon Dioxide 24 (22-30) mmol/L Anion Gap 7 (4-12) mmol/L BUN 11 D (9-20) mg/dL Creatinine 0.75 (0.7-1.3) mg/dL Estim Creat Clear Calc 112 ml/min Estimated GFR > 60 (59 - ) Glucose 111 H (65-110) mg/dL Calcium 8.6 (8.4-10.2) mg/dL Total Bilirubin 0.5 (0.2-1.3) mg/dL AST 24 (17-59) U/L ALT 14 (6-50) U/L Alkaline Phosphatase 82 (38-126) U/L Total Protein 7.0 (6.3-8.2) g/dL Albumin 4.4 (3.5-5.1) g/dL Discharge Plan Discharge Clinical Impression: Epileptic seizure Patient Disposition: Home, Self-Care Condition: Stable Instructions: Antibiotic Form, Recurrent Seizures in Adults (ED) Additional Instructions: Please follow-up with your neurologist as soon as possible Patient Language: Kinyarwanda Prescriptions: No Action clonazepam 1 mg tablet lamotrigine 100 mg tablet lacosamide 200 mg tablet meclizine [Antivert] 25 mg tablet,chewable 25 mg PO TID Qty: 20 0RF ondansetron HCl 4 mg tablet 4 mg PO Q4H Qty: 10 0RF Rx Instructions: 1st dose 1-2 hr before radiation Follow-up/Referrals: Gerardo Greene MD [Primary Care Provider] - Time of Disposition: 17:42
--- NOTE | 2024-11-15 14:47 | ECG_ITS ---
Test Date: 2024-11-15 14:49:49 Measurements Intervals [place] Rate: 53 P: 50 SD: 189 QRS: 28 QRSD: 101 T: 58 QT: 394 QTc: 370 Interpretive Statements SINUS BRADYCARDIA INCOMPLETE RIGHT BUNDLE BRANCH BLOCK [90+ ms QRS DURATION, TERMINAL R IN V1/V2, 40+ ms S IN I/aVL/V4/V5/V6] No previous ECG available for comparison Electronically Signed On 11-15-2024 14:58:18 CHISEL GRINDER by Pepe Joiner M.D.
--- NOTE | 2024-11-15 14:54 | PC.NURSE ---
seizure pads in place at this time
[2024-11-15 15:09] LABS: Basophils Absolute Auto 0.1 K/mm3 (0.0-0.1); Basophils Percent Auto 0.6 % (0.2-1.2); Eosinophils Absolute Auto 0.1 K/mm3 (0-0.3); Eosinophils Percent Auto 0.7 % (0-4.4); Hematocrit 46.3 % (42.0-52.0); Hemoglobin 15.6 g/dL (14.0-18.0); Immature Granulocyte Absolute 0.04 K/mm3 (0.00-0.031); Immature Granulocyte Percent A 0.5 % (0-0.5); Lymphocytes Absolute Auto 1.72 K/mm3 (0.9-3.2); Mean Corpuscular HGB Conc 33.7 g/dl (32-36); Mean Corpuscular Hemoglobin 30.2 pg (26-34); Mean Corpuscular Volume 89.6 fl (80-100); Monocytes Absolute Auto 0.4 K/mm3 (0.1-0.6); Monocytes Percent Auto 4.6 % (2.6-8.5); Neutrophils Percent Auto 72.6 % (45.5-73.1); Platelet Count Result 243 k/mm3 (150-375); Red Blood Count 5.17 M/mm3 (4.6-6.20); Red Cell Distribution Width 12.3 % (11.5-14.5); White Blood Count 8.2 K/mm3 (4.5-10.0)
[2024-11-15 15:22] LABS: Alanine Aminotransferase 14 U/L (6-50); Albumin Level 4.4 g/dL (3.5-5.1); Alkaline Phosphatase 82 U/L (38-126); Anion Gap 7 mmol/L (4-12); Aspartate Amino Transferase 24 U/L (17-59); Bilirubin,Total 0.5 mg/dL (0.2-1.3); Blood Urea Nitrogen 11 mg/dL (9-20); Calcium 8.6 mg/dL (8.4-10.2); Carbon Dioxide 24 mmol/L (22-30); Chloride 105 mmol/L (98-107); Estimated CRCL calculation 112 ml/min; Estimated Glomerular Filt Rate > 60; Glucose 111 mg/dL (65-110); Potassium 4.4 mmol/L (3.4-5.0); Sodium 136 mmol/L (137-145)
--- NOTE | 2024-11-15 15:28 | PC.NURSE ---
patient provided a urinal to obtain a urine sample. patient verbalizes understanding and will utilize call light when he is able to provide a sample.
--- NOTE | 2024-11-15 17:52 | PC.NURSE ---
patient ambulated appropriately with a steady gait, with no complaints of dizziness, lightheadedness, or unease with walking
== END 2024-11-15 18:17 | disposition home or self-care (01) ==
PROVIDERS: Emergency Provider Emergency Medicine; PCP Family Medicine
DX: G40.909 Epilepsy, unspecified, not intractable, without status epilepticus (principal); F17.290 Nicotine dependence, other tobacco product, uncomplicated; R00.1 Bradycardia, unspecified; I45.10 Unspecified right bundle-branch block
CPT/HCPCS: 36415; 80053; 85025; 93005; 99283

== ENCOUNTER 2025-07-23 10:48 | Outpatient (CLI) | payer MEDICARE, SELFPAY ==
--- OUTSIDE RECORDS SUMMARY | 2025-07-23 11:48 | XMS_ITS | Patient Health Record ---
Author Organization [facility] Address [address] [place] [address] Care Team Providers Care Aboriginal Ceremonial Celebrant Name Role Phone [place], [place] Primary Care Provider [phone] Allergies No Known Allergies Reason For Referral No Information Medications Medication SIG (Take, Route, Fr equency, Duration) Notes Start Date End Date Status lamoTRIgine 200 MG TAKE 2 TABLETS BY MO UT EVERY DAY; Duration: 30 Active Social History Tobacco Use: Social History Observation Description Date Details (start date - stop date) Never Smoker NA - NA Sex Assigned At : Social History Observation Description Sex Assigned At Male Dont use, Tobacco Use/Smoking Question Answer Notes Are you a nonsmoker Problems Problem Type SNOMED Code ICD Code Onset Dates Problem Status W/U Status Risk Notes Problem Seizure disorder (901413923) Seizure disorder (G40.909) Active confirmed Plan Of Treatment No Information Insurance Providers Payer Name Payer Address Payer Phone Subscriber Number Group Number Insured Name Patient Relationship to Insured Coverage Start Date Coverage End Date [facility] [address] [place] [phone] [id number] [employer] santana Self - patient is the insured 1 Medical (General) History Surgical History Surgery Date(Month/Year) fluid removed from testicle great toe repair Hospitalization History Reason Date(Month/Year) seizures
--- OUTSIDE RECORDS SUMMARY | 2025-07-23 11:48 | XMS_ITS | Clinical Summary ---
Author Organization [facility] Address [address] [place] [address] Care Team Providers Care Excavation Laborer Name Role Phone [facility] Unavail able [facility] Primary Care Provider Source Comments [facility],non-owned Affiliates and Associated Physician Practices is amultiple site organization consisting of ambulatory clinics and hospital sitesin [place], [place], [place] and [place]. This disclosure is being madepursuant to the Care Everywhere program and may not contain all information available regarding this patient. Last updated 18.[facility] Allergies No known active allergies Medications * Be aware that medications may not be up to date on this document. Alwaysverify current medications with the patient. lamoTRIgine (LAMICTAL) 200 MG tablet Take 2 (two) tablets by mouth once daily 60 tablet 11 02/16/2022 Active lacosamide (VIMPAT) 200 MG tablet Take 1 (one) tablet by mouth 2 times daily 60 tablet 5 04/11/2022 Active lacosamide (Vimpat) 200 MG tablet Take 1 (one) tablet by mouth 2 times daily for 30 days 60 tablet 10/31/2024 Active ibuprofen (Motrin) 600 MG tablet Take 1 (one) tablet by mouth every 6 hours as needed for Pain 30 tablet 10/31/2024 Active Active Problems Problem Noted Date Diagnosed Date Status epilepticus 07/13/2024 Leukocytosis, unspecified type 07/13/2024 Seizure 07/13/2024 Elevated lactic acid level 07/13/2024 Seizures 06/03/2021 Family History Medical History Relation Name Comments Cancer Father Cancer Mother Diabetes - Type 1 Mother Diabetes - Type 2 Mother Relation Name Status Comments Father Mother Social History Tobacco Use Types Packs/Day Years Used Date Smoking Tobacco: Former Smokeless Tobacco: Never Alcohol Use Standard Drinks/Week Comments Not Currently 0 (1 standard drink = 0.6 oz pur e alcohol) Sex and Gender Information Value Date Recorded Sex Assigned at Not on file 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 Gender Identity Not on file Sexual Orientation Not on file Last Filed Vital Signs Vital Sign Reading Time Taken Comments Blood Pressure 118/79 10/31/2024 11:55 PM MARKET SALES MANAGER Pulse 68 10/31/2024 11:55 PM MARKET SALES MANAGER Temperature 36.8 C (98.2 F) 10/31/2024 4:21 PM MARKET SALES MANAGER Respiratory Rate 16 10/31/2024 11:55 PM MARKET SALES MANAGER Oxygen Saturation 99% 10/31/2024 11:55 PM MARKET SALES MANAGER Inhaled Oxygen Concentration - - Weight 74.8 kg (165 lb) 10/31/2024 1:36 PM MARKET SALES MANAGER Height 185.4 cm (6' 1) 10/31/2024 1:36 PM MARKET SALES MANAGER Body Mass Index 21.77 10/31/2024 1:36 PM MARKET SALES MANAGER Plan of Treatment Health Maintenance Due Date Last Done Comments MEDICARE AWV 12 MONTHS 1983 HIV SCREENING 1998 HEPATITIS C SCREENING 06/26/2001 DTAP/TDAP/TD VACCINES (1 - Tdap) 2002 HEPATITIS B VACCINE (1 of 3 - 19+ 3-dose series) 2002 HPV VACCINE (1 - 3-dose SCDM series) 2010 DEPRESSION SCREENING 10/30/2024 COVID-19 VACCINE (1 - 2023-2 5 season) 2025 INFLUENZA VACCINE (#1) 2025 LIPID TESTING 07/06/2027 07/06/2022 ZOSTER VACCINE (1 of 2) 2033 HIB VACCINE Aged Out No longer eligi ble based on patient's age to complete this topic MENINGOCOCCAL (Group B) VACC INE SHARED DECISION-MAKING Aged Out No longer eligibl e based on patient's age to complete this topic MENINGOCOCCAL GROUPS A/C/Y/W VACCINE Aged Out No longer eligible b ased on patient's age to complete this topic PNEUMOCOCCAL VACCINE Aged Out No long er eligible based on patient's age to complete this topic Insurance [facility] [employer] [facility] MEDICAID MEDICARE Advance Directives * Full Code (Latest Code Status on File) Date Activated Date Inactivated Comments 09/01/2024 9:06 PM 09/02/2024 3:02 PM * Full Code Date Activated Date Inactivated Comments 07/13/2024 2:45 AM 07/13/2024 7:26 PM * Full Code Date Activated Date Inactivated Comments 06/07/2021 11:42 AM 06/13/2021 6:26 PM Care Teams Excavation Laborer Relationship Specialty Start Date End Date [facility] [address] [place] [address] PCP - General 04/29/22 [facility] [address] [place] [address] 03/17/21
--- OUTSIDE RECORDS SUMMARY | 2025-07-23 11:48 | XMS_ITS | Clinical Summary ---
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 Gender Identity Not on file Sexual Orientation Not on file Plan of Treatment Health Maintenance Due Date Last Done Comments Annual Physical 1986 Hepatitis C 2001 DTaP, Tdap and Td Vaccines ( 1 - Tdap) 2002 Hepatitis B Vaccines (1 of 3 - 19+ 3-dose series) 2002 HPV Vaccines (1 - 3-dose SCD M series) 2010 COVID-19 Vaccine (3 - 2024-2 6 season) 2025 09/28/2021, 09/06/2021 Meningococcal B Vaccine Aged Out No l onger eligible based on patient's age to complete this topic Meningococcal Vaccine Aged Out No mike duglas eligible based on patient's age to complete this topic Pneumococcal Vaccine: Pediatrics (0 to 5 Years) and At-Risk Patients (6 to 49 Years) Aged Out No longer eligible b ased on patient's age to complete this topic RSV Immunizations Under 20 Months Aged Out No longer eligible b ased on patient's age to complete this topic Insurance Care Teams Humanities Teacher Relationship Specialty Start Date End Date Gerardo Greene MD [address] [place] [place] [address] PCP - General FAMILY PRACTICE 01/17/23
--- OUTSIDE RECORDS SUMMARY | 2025-07-23 11:48 | XMS_ITS | Clinical Summary ---
Author Organization [facility] Address [address] [place] [address] Phone Care Team Providers Care Emergency Medicine Medical Director Name Role Phone Ne Laws MD Primary Care Provider Allergies No known active allergies Medications cyclobenzaprine (FLEXERIL) 10 MG Tablet Take 10 mg by mouth 3 times daily as needed. Active meloxicam (MOBIC) 15 MG Tablet Take 15 mg by mouth daily. 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 Gender Identity Not on file Sexual Orientation Not on file Plan of Treatment Health Maintenance Due Date Last Done Comments Hepatitis C Virus (HCV) Screening 1983 TdaP Immunization 1983 Hepatitis B Immunization (1 of 3 - 19+ 3-dose series) 2002 Human Papillomavirus (HPV) Immunization (1 - 3-dose SCDM series) 2010 SARS-COV-2 Immunization (3 - season) 2024 09/28/2021, 09/06/2021 Influenza Immunization (#1) 2025 Respiratory Syncytial Virus (RSV) Immunization (Adult) (1 - 1-dose 75+ series) 2058 Meningococcal Immunization (ACWY) Aged Out No longer eligible b ased on patient's age to complete this topic Pneumococcal Immunization Combined Aged Out No longer eligible b ased on patient's age to complete this topic Rotavirus Immunization Aged Out No lo nger eligible based on patient's age to complete this topic Insurance [place]ICAID [place] Care Teams Emergency Medicine Medical Director Relationship Specialty Start Date End Date Susang Ne Aguilera MD [address] [place] [address] PCP - General Family Medicine 09/19/19
[2025-07-23 12:10] LABS: Hematocrit 44.2 % (42.0-52.0); Hemoglobin 14.6 g/dL (14.0-18.0); Immature Granulocyte Percent A 0.3 % (0-0.5); Lymphocytes Absolute Auto 1.36 K/mm3 (0.9-3.2); Mean Corpuscular HGB Conc 33.0 g/dl (32-36); Mean Corpuscular Hemoglobin 30.3 pg (26-34); Mean Corpuscular Volume 91.7 fl (80-100); Nucleated Red Blood Cells Absolute Auto 0.000 K/mm3 (0.0-0.012); Nucleated Red Blood Cells Perc 0.0 % (0.0-0.2); Platelet Count Result 198 k/mm3 (150-375); Red Blood Count 4.82 M/mm3 (4.6-6.20); White Blood Count 6.2 K/mm3 (4.5-10.0)
[2025-07-23 12:18] LABS: Hemoglobin A1C 5.5 % (<5.7)
[2025-07-23 12:23] LABS: Alanine Aminotransferase 16 U/L (6-50); Albumin Level 4.5 g/dL (3.5-5.1); Alkaline Phosphatase 98 U/L (38-126); Anion Gap 6 mmol/L (4-12); Aspartate Amino Transferase 30 U/L (17-59); Bilirubin,Total 0.3 mg/dL (0.2-1.3); Blood Urea Nitrogen 9 mg/dL (9-20); Calcium 8.9 mg/dL (8.4-10.2); Carbon Dioxide 28 mmol/L (22-30); Chloride 103 mmol/L (98-107); Estimated Glomerular Filt Rate > 60; Glucose 104 mg/dL (65-110); Magnesium 2.1 mg/dL (1.6-2.3); Potassium 4.5 mmol/L (3.4-5.0); Sodium 137 mmol/L (137-145); Total Protein 7.1 g/dL (6.3-8.2)
[2025-07-23 12:57] LABS: Prostate Specific Antigen 1.4 ng/mL (< OR = 4.0)
[2025-07-23 13:00] LABS: Thyroid Stimulating Hormone Reflex 0.669 uIU/mL (0.465-4.68)
[2025-07-23 13:16] LABS: Vitamin B12 290.0 pg/mL (239-931)
== END 2025-07-23 10:49 | disposition home or self-care (01) ==
PROVIDERS: PCP Family Medicine; Visit Provider Nurse Practitioner Family
DX: R53.1 Weakness (principal); R53.83 Other fatigue; E55.9 Vitamin D deficiency, unspecified; Z13.220 Encounter for screening for lipoid disorders; Z13.1 Encounter for screening for diabetes mellitus; Z12.5 Encounter for screening for malignant neoplasm of prostate
CPT/HCPCS: 36415; 80053; 82306; 82607; 82746; 83036; 83735; 84153; 84443; 85025; G0103